=== PATIENT | female | born 1945 | race Caucasian/White ===

== ENCOUNTER → 2016-07-19 | Outpatient (CLI) | payer MEDICARE, OTHER ==
--- NOTE | 2016-07-19 14:14 | MM ---
Reason for exam: screening (asymptomatic). History: Patient is postmenopausal and history of other cancer. Physical Findings: A clinical breast exam by your physician is recommended on an annual basis and results should be correlated with mammographic findings. MG 3D Screening Mammo W/Cad Bilateral CC and MLO view(s) were taken. There are scattered fibroglandular densities. Finding: There are typically benign vascular, round, skin calcifications in both breasts. There is a chronic nodularity bilaterally. There is no discrete abnormality. ASSESSMENT: Benign, BI-RAD 2 RECOMMENDATION: Routine screening mammogram of both breasts in 1 year.
== END | disposition home or self-care (01) ==
LOC: RADMAMWWP 11:11
PROVIDERS: ATTEND Family Medicine
DX: Z12.31 Encounter for screening mammogram for malignant neoplasm of breast (principal)
CPT/HCPCS: 77063; G0202

== ENCOUNTER 2017-01-13 12:48 | Inpatient (IN) | payer MEDICARE, OTHER ==
[2017-01-13] MEDS ORDERED: RX INFO: IV CONTRAST WAS GIVEN 1 EACH MISC MISCELLANE PRN (13:51)
[2017-01-13] MEDS ORDERED: SODIUM CHLORIDE 0.9% 500 ML IV STA (13:51)
--- NOTE | 2017-01-13 13:58 | ED ---
Abdominal Pain HPI - General Chief Complaint: Abdominal Pain Stated Complaint: Constipation, Abd Pain Time Seen by Provider: 01/13/17 13:44 Source: patient, RN notes reviewed Mode of arrival: ambulatory Limitations: no limitations - History of Present Illness Initial Comments: 71-year-old female presents emergency Department from primary care physician's office for abdominal pain. Patient states she has not felt well and said problems with her bowel movements over the last 1 week. Patient states that she has felt weak and, rundown Patient had repeat x-rays which showed possible ileus her large colon. Patient states that she's been having difficulty with constipation states that she has been on MiraLAX and magnesium citrate with minimal relief. She states she does get small slender bowel movements. Patient states she is scheduled colonoscopy but this is not until 2 weeks from now with Dr. Bustos. Patient denies any fever, chills, nausea, vomiting diarrhea dysuria or hematuria. Primary care physician did call over to emergency department stating that she was sending the patient and that she was given order a CT outpatient were requested this to be ordered in the emergency room. - Related Data Home Medications Medication Instructions Recorded Confirmed Allopurinol [Zyloprim] 300 mg PO HS 01/13/17 01/13/17 Alpha Lipoic Acid 50 mg PO DAILY 01/13/17 01/13/17 Aspirin 81 mg PO HS 01/13/17 01/13/17 Diclofenac Sodium [Voltaren] 75 mg PO BID 01/13/17 01/13/17 Hydrochlorothiazide [Hydrodiuril] 25 mg PO DAILY 01/13/17 01/13/17 LORazepam [Ativan] 0.5 - 1 mg PO TID PRN 01/13/17 01/13/17 Levothyroxine Sodium [Synthroid] 100 mcg PO HS 01/13/17 01/13/17 Montelukast [Singulair] 10 mg PO HS 01/13/17 01/13/17 Multivitamins, Thera [Multivitamin 1 tab PO DAILY 01/13/17 01/13/17 (formulary)] OXcarbazepine [Trileptal] 300 mg PO BID 01/13/17 01/13/17 [place]-3 Fatty Acids/Fish Oil [Fish 1 cap PO DAILY 01/13/17 01/13/17 Oil 1,000 mg Softgel] Omeprazole [PriLOSEC] 40 mg PO DAILY 01/13/17 01/13/17 Potassium Chloride ER [K-Dur 20] 20 meq PO HS 01/13/17 01/13/17 Ranitidine HCl [Zantac] 150 mg PO W/SUPPER 01/13/17 01/13/17 Spironolactone [Aldactone] 50 mg PO HS 01/13/17 01/13/17 Ubidecarenone [Co Q-10] 100 mg PO DAILY 01/13/17 01/13/17 guaiFENesin [Mucinex] 600 mg PO BID 01/13/17 01/13/17 lamoTRIgine [LaMICtal] 400 mg PO DAILY 01/13/17 01/13/17 metFORMIN HCL ER [Glucophage Xr] 500 mg PO PC-SUPPER 01/13/17 01/13/17 Allergies Allergy/AdvReac Type Severity Reaction Status Date / Time chlordiazepoxide Allergy Unknown Verified 01/13/17 14:40 [From Librax (with clidinium)] clidinium Allergy Unknown Verified 01/13/17 14:40 [From Librax (with clidinium)] codeine Allergy Itching Verified 01/13/17 14:40 Penicillins Allergy Rash/Hives Verified 01/13/17 14:40 pentazocine lactate Allergy Hallucinati Verified 01/13/17 14:40 [From Talwin] ons propoxyphene HCl Allergy Rapid Verified 01/13/17 14:40 [From Darvon] Heart Rate tomato AdvReac Nausea & Verified 01/13/17 14:40 Vomiting & Diarrhea Review of Systems ROS Statement: Those systems with pertinent positive or pertinent negative responses have been documented in the HPI. ROS Other: All systems not noted in ROS Statement are negative. Past Medical History Past Medical History: Diabetes Mellitus, Thyroid Disorder Additional Past Medical History / Comment(s): bipolar hypokalemia murmur History of Any Multi-Drug Resistant Organisms: None Reported Past Surgical History: Appendectomy, Orthopedic Surgery, Tonsillectomy, Tubal Ligation Additional Past Surgical History / Comment(s): knee Past Psychological History: Bipolar Smoking Status: Never smoker Past Alcohol Use History: None Reported Past Drug Use History: None Reported General Exam Limitations: no limitations General appearance: alert, in no apparent distress Neck exam: Present: normal inspection, full ROM. Absent: tenderness, meningismus, lymphadenopathy Respiratory exam: Present: normal lung sounds bilaterally. Absent: respiratory distress, wheezes, rales, rhonchi, stridor Cardiovascular Exam: Present: regular rate, normal rhythm, normal heart sounds. Absent: systolic murmur, diastolic murmur, rubs, gallop, clicks GI/Abdominal exam: Present: soft, tenderness (Mild diffuse), normal bowel sounds. Absent: distended, guarding, rebound, rigid Back exam: Absent: CVA tenderness (R), CVA tenderness (L) Skin exam: Present: warm, dry, intact, normal color. Absent: rash Course Vital Signs 01/13/17 13:14 Temperature 97.1 F L Pulse Rate 81 Respiratory 18 Rate Blood Pressure 134/68 O2 Sat by Pulse 100 Oximetry Medical Decision Making - Lab Data Result diagrams: 01/13/17 14:00 01/13/17 14:00 Lab Results 01/13/17 01/13/17 01/13/17 Range/Units 14:00 14:00 14:08 WBC 7.7 (3.8-10.6) k/uL RBC 3.73 L (3.80-5.40) m/uL Hgb 10.0 L (11.4-16.0) gm/dL Hct 30.7 L (34.0-46.0) % MCV 82.2 (80.0-100.0) fL MCH 26.9 (25.0-35.0) pg MCHC 32.7 (31.0-37.0) g/dL RDW 15.7 H (11.5-15.5) % Plt Count 506 H (150-450) k/uL Neutrophils % 70 % Lymphocytes % 18 % Monocytes % 7 % Eosinophils % 2 % Basophils % 1 % Neutrophils # 5.4 (1.3-7.7) k/uL Lymphocytes # 1.3 (1.0-4.8) k/uL Monocytes # 0.5 (0-1.0) k/uL Eosinophils # 0.2 (0-0.7) k/uL Basophils # 0.0 (0-0.2) k/uL Sodium 118 L* (137-145) mmol/L Potassium 5.0 (3.5-5.1) mmol/L Chloride 82 L (98-107) mmol/L Carbon Dioxide 24 (22-30) mmol/L Anion Gap 12 mmol/L BUN 11 (7-17) mg/dL Creatinine 0.61 (0.52-1.04) mg/dL Est GFR (MDRD) Af Amer >60 (>60 ml/min/1.73 sqM) Est GFR (MDRD) Non-Af >60 (>60 ml/min/1.73 sqM) Glucose 98 (74-99) mg/dL POC Glucose (mg/dL) (75-99) mg/dL POC Glu [employer] Operator ID Calcium 9.5 (8.4-10.2) mg/dL Total Bilirubin 0.2 (0.2-1.3) mg/dL AST 39 H (14-36) U/L ALT 68 H (9-52) U/L Alkaline Phosphatase 95 (38-126) U/L Total Protein 7.4 (6.3-8.2) g/dL Albumin 4.8 (3.5-5.0) g/dL Amylase 58 (30-110) U/L Lipase 197 (23-300) U/L Urine Color Yellow Urine Appearance Cloudy H (Clear) Urine pH 7.5 (5.0-8.0) Ur Specific [place] 1.018 (1.001-1.035) Urine Protein 1+ H (Negative) Urine Glucose (UA) Negative (Negative) Urine Ketones Trace H (Negative) Urine Blood Negative (Negative) Urine Nitrite Negative (Negative) Urine Bilirubin Negative (Negative) Urine Urobilinogen <2.0 (<2.0) mg/dL Ur Leukocyte Esterase Negative (Negative) Urine RBC 1 (0-5) /hpf Urine WBC 2 (0-5) /hpf Ur Squamous Epith Cells 11 H (0-4) /hpf Amorphous Sediment Moderate H (None) /hpf Urine Bacteria Rare H (None) /hpf Urine Mucus Occasional H (None) /hpf 01/13/17 Range/Units 15:32 WBC (3.8-10.6) k/uL RBC (3.80-5.40) m/uL Hgb (11.4-16.0) gm/dL Hct (34.0-46.0) % MCV (80.0-100.0) fL MCH (25.0-35.0) pg MCHC (31.0-37.0) g/dL RDW (11.5-15.5) % Plt Count (150-450) k/uL Neutrophils % % Lymphocytes % % Monocytes % % Eosinophils % % Basophils % % Neutrophils # (1.3-7.7) k/uL Lymphocytes # (1.0-4.8) k/uL Monocytes # (0-1.0) k/uL Eosinophils # (0-0.7) k/uL Basophils # (0-0.2) k/uL Sodium (137-145) mmol/L Potassium (3.5-5.1) mmol/L Chloride (98-107) mmol/L Carbon Dioxide (22-30) mmol/L Anion Gap mmol/L BUN (7-17) mg/dL Creatinine (0.52-1.04) mg/dL Est GFR (MDRD) Af Amer (>60 ml/min/1.73 sqM) Est GFR (MDRD) Non-Af (>60 ml/min/1.73 sqM) Glucose (74-99) mg/dL POC Glucose (mg/dL) 118 H (75-99) mg/dL POC Glu [employer]ging [employer] Operator ID [place], Felicia Calcium (8.4-10.2) mg/dL Total Bilirubin (0.2-1.3) mg/dL AST (14-36) U/L ALT (9-52) U/L Alkaline Phosphatase (38-126) U/L Total Protein (6.3-8.2) g/dL Albumin (3.5-5.0) g/dL Amylase (30-110) U/L Lipase (23-300) U/L Urine Color Urine Appearance (Clear) Urine pH (5.0-8.0) Ur Specific [place] (1.001-1.035) Urine Protein (Negative) Urine Glucose (UA) (Negative) Urine Ketones (Negative) Urine Blood (Negative) Urine Nitrite (Negative) Urine Bilirubin (Negative) Urine Urobilinogen (<2.0) mg/dL Ur Leukocyte Esterase (Negative) Urine RBC (0-5) /hpf Urine WBC (0-5) /hpf Ur Squamous Epith Cells (0-4) /hpf Amorphous Sediment (None) /hpf Urine Bacteria (None) /hpf Urine Mucus (None) /hpf Disposition Clinical Impression: Hyponatremia Disposition: ADMITTED IP TO THIS HOSP Condition: Stable Referrals: Nicole Coughlin MD [Primary Care Provider] - 1-2 days
[2017-01-13 14:09] LABS: Basophils % (A) 1 %; CH 27.9; Eosinophils # (A) 0.2 k/uL (0-0.7); Eosinophils % (A) 2 %; HCT 30.7 % (34.0-46.0); HDW 2.71; Luc # (Auto) 0.19; Luc % (Auto) 2; Lymphocytes # (A) 1.3 k/uL (1.0-4.8); Lymphocytes % (A) 18 %; MCH 26.9 pg (25.0-35.0); MCHC 32.7 g/dL (31.0-37.0); MCV 82.2 fL (80.0-100.0); Mean Platelet Volume 6.5; Monocytes # (A) 0.5 k/uL (0-1.0); Monocytes % (A) 7 %; Neutrophils # (A) 5.4 k/uL (1.3-7.7); Neutrophils % (A) 70 %; RBC 3.73 m/uL (3.80-5.40); RDW 15.7 % (11.5-15.5); WBC 7.7 k/uL (3.8-10.6); WBC (Perox) 8.35
[2017-01-13 14:19] LABS: Amorphous Sediment,Urine Moderate /hpf; Appearance,Urine Cloudy (Clear); Bacteria,Urine Rare /hpf; Bilirubin,Urine Negative (Negative); Glucose,Urine (UA) Negative (Negative); Ketones,Urine Trace (Negative); Leukocyte Esterase,Urine Negative (Negative); Mucus,Urine Occasional /hpf; Nitrite,Urine Negative (Negative); PH, Urine 7.5 (5.0-8.0); Particle Count 5949; Protein,Urine 1+ (Negative); RBC,Urine 1 /hpf (0-5); Specific Gravity,Urine 1.018 (1.001-1.035); Squamous Epithelial Cell,Urine 11 /hpf (0-4); UA Billing (MACRO vs. MICRO) MICRO; Urobilinogen,Urine <2.0 mg/dL (<2.0); WBC,Urine 2 /hpf (0-5)
[2017-01-13 14:21] LABS: Blood Urea Nitrogen 11 mg/dL (7-17); Carbon Dioxide 24 mmol/L (22-30)
[2017-01-13 14:42] LABS: ALT 68 U/L (9-52); AST 39 U/L (14-36); Alkaline Phosphatase 95 U/L (38-126); Amylase 58 U/L (30-110); Anion Gap 12 mmol/L; Calcium 9.5 mg/dL (8.4-10.2); Chloride 82 mmol/L (98-107); Non-African American GFR(MDRD) >60 (>60 ml/min/1.73 sqM); Total Bilirubin 0.2 mg/dL (0.2-1.3); Total Protein 7.4 g/dL (6.3-8.2)
[2017-01-13 14:46] LABS: Glucose 98 mg/dL (74-99)
[2017-01-13 14:54] LABS: Sodium 118 mmol/L (137-145)
[2017-01-13] MEDS: SODIUM CHLORIDE 0.9% 1,000 ML IV SCH (15:26)
[2017-01-13 15:34] LABS: Glucose,Whole Blood 118 mg/dL (75-99)
--- NOTE | 2017-01-13 16:39 | CT ---
EXAMINATION TYPE: CT abdomen pelvis w con DATE OF EXAM: 01/13/2017 HISTORY: abdominal pain, constipation CT DLP: 1562.7mGycm Automated Exposure Control for Dose Reduction was Utilized. CONTRAST: CT scan of the abdomen and pelvis is performed with IV Contrast, patient injected with 100 mL of Omni paque 300. COMPARISON: None. FINDINGS: LUNG BASES: Minimal subsegmental bibasilar atelectasis. LIVER/GB: No significant abnormality is appreciated. PANCREAS: No significant abnormality is seen. SPLEEN: No significant abnormality is seen. ADRENALS: No significant abnormality is seen. KIDNEYS: No significant abnormality is seen. BOWEL: No significant abnormality is seen. There is a small gastroesophageal hiatal hernia. There is a moderate amount of retained stool throughout the colon with no evidence of obstruction. UTERUS/[place]: No gross abnormality seen. LYMPH NODES: No greater than 1cm abdominal or pelvic lymph nodes are appreciated. OSSEOUS STRUCTURES: There is grade 1 anterolisthesis of L4 on L5 without pars interarticularis defect , likely degenerative in nature. Moderate degenerative changes are seen of the visualized thoracolumb ar spine. OTHER: No significant additional abnormality is seen. IMPRESSION: 1. No acute intra-abdominal process. 2. Moderate amount of retained stool throughout the nondilated colon. Given the history of constipati on if there is clinical concern for colonic mass colonoscopy would be recommended. 3. Grade 1 anterolisthesis of L4 on L5, likely on a degenerative basis.
[2017-01-13] MEDS ORDERED: NALOXONE 0.4 MG/ML 1 ML VIAL IV PRN (17:00)
[2017-01-13] MEDS ORDERED: LACTULOSE 20 GM/30 ML CUP PO ONE (21:33)
[2017-01-13] MEDS ORDERED: POTASSIUM CHLORIDE ER 20 MEQ TAB.ER PO SCH (23:45)
[2017-01-14] MEDS: SPIRONOLACTONE 25 MG TAB PO SCH ×2 (00:42→22:37)
[2017-01-14] MEDS: LORazepam 1 MG TAB PO PRN ×3 (00:43→22:46)
[2017-01-14] MEDS: SODIUM CHLORIDE 0.9% 1,000 ML IV SCH ×2 (06:59→17:46)
[2017-01-14 08:02] LABS: Glucose,Whole Blood 120 mg/dL (75-99)
[2017-01-14] MEDS: INSULIN LISPRO (humaLOG) 300 UNIT/3 ML VIAL SQ SCH ×4 (08:10→22:36)
[2017-01-14 08:19] LABS: Basophils % (A) 0 %; CH 27.8; CHCM 33.1; Eosinophils # (A) 0.1 k/uL (0-0.7); Eosinophils % (A) 2 %; HCT 30.3 % (34.0-46.0); HDW 2.66; HGB 9.7 gm/dL (11.4-16.0); Luc # (Auto) 0.17; Luc % (Auto) 2; Lymphocytes # (A) 1.3 k/uL (1.0-4.8); Lymphocytes % (A) 16 %; MCH 26.9 pg (25.0-35.0); MCHC 31.9 g/dL (31.0-37.0); MCV 84.3 fL (80.0-100.0); Mean Platelet Volume 6.2; Monocytes # (A) 0.7 k/uL (0-1.0); Monocytes % (A) 8 %; Neutrophils # (A) 5.7 k/uL (1.3-7.7); Neutrophils % (A) 71 %; RBC 3.59 m/uL (3.80-5.40); RDW 15.9 % (11.5-15.5); WBC 7.9 k/uL (3.8-10.6); WBC (Perox) 7.89
[2017-01-14] MEDS: PANTOPRAZOLE 40 MG TABLET PO SCH (08:37)
[2017-01-14] MEDS ORDERED: HYDROCHLOROTHIAZIDE 25 MG TAB PO SCH (09:00)
[2017-01-14 09:53] LABS: Anion Gap 11 mmol/L; Blood Urea Nitrogen 8 mg/dL (7-17); Calcium 9.5 mg/dL (8.4-10.2); Carbon Dioxide 23 mmol/L (22-30); Chloride 89 mmol/L (98-107); Glucose 109 mg/dL (74-99); Non-African American GFR(MDRD) >60 (>60 ml/min/1.73 sqM); Potassium 4.9 mmol/L (3.5-5.1); Sodium 123 mmol/L (137-145)
[2017-01-14] MEDS: ACETAMINOPHEN TAB 325 MG TAB PO PRN ×2 (11:19→18:51)
[2017-01-14] MEDS: MAGNESIUM SULFATE-D5W PMX 1 GM in DEXTROSE/WATER 1 100ML.BAG IVPB SCH ×2 (11:20→12:26)
[2017-01-14] MEDS: lamoTRIgine 100 MG TAB PO SCH (11:21)
[2017-01-14] MEDS: OXcarbazepine 300 MG TAB PO SCH ×2 (11:21→22:37)
[2017-01-14 11:40] LABS: Glucose,Whole Blood 132 mg/dL (75-99)
--- NOTE | 2017-01-14 13:20 | P.HPIM ---
History of Present Illness H&P Date: 01/14/17 Chief Complaint: Generalized weakness This is a 71-year-old female with past medical history noted below who presented to the hospital with generalized weakness and not feeling well. Patient said that for the past few days she has been feeling very weak and she was having problems with constipation. She denies any nausea or vomiting. She reports decreased appetite as well. No fevers or chills. She presented to the emergency room for further evaluation and was found to be significantly hyponatremic with a sodium level of 118 on presentation. Computed tomography scan of the abdomen and pelvis showed evidence of stool burden and constipation. Patient was admitted to the hospital and was started on IV fluid hydration. Her sodium level improved slightly this morning. She was also given 1 dose of lactulose and she had 2 bowel movements so far. She reports improved appetite this morning. Review of Systems Review of system: 14 points review of systems were obtained and were negative except to what were mentioned in the HPI. Past Medical History Past Medical History: Asthma, Diabetes Mellitus, Hyperlipidemia, Thyroid Disorder Additional Past Medical History / Comment(s): bipolar hypokalemia murmur History of Any Multi-Drug Resistant Organisms: None Reported Past Surgical History: Appendectomy, Orthopedic Surgery, Tonsillectomy, Tubal Ligation Additional Past Surgical History / Comment(s): knee Past Anesthesia/Blood Transfusion Reactions: No Reported Reaction Past Psychological History: Bipolar Smoking Status: Never smoker Past Alcohol Use History: None Reported Past Drug Use History: None Reported - Past Family History Father Family Medical History: Cancer, Hypertension Mother Family Medical History: Pulmonary Embolus Additional Family Medical History / Comment(s): bi polar Medications and Allergies Home Medications Medication Instructions Recorded Confirmed Type Allopurinol [Zyloprim] 300 mg PO HS 01/13/17 01/13/17 History Alpha Lipoic Acid 50 mg PO DAILY 01/13/17 01/13/17 History Aspirin 81 mg PO HS 01/13/17 01/13/17 History Diclofenac Sodium [Voltaren] 75 mg PO BID 01/13/17 01/13/17 History Hydrochlorothiazide [Hydrodiuril] 25 mg PO DAILY 01/13/17 01/13/17 History LORazepam [Ativan] 0.5 - 1 mg PO TID PRN 01/13/17 01/13/17 History Levothyroxine Sodium [Synthroid] 100 mcg PO HS 01/13/17 01/13/17 History Montelukast [Singulair] 10 mg PO HS 01/13/17 01/13/17 History Multivitamins, Thera [Multivitamin 1 tab PO DAILY 01/13/17 01/13/17 History (formulary)] OXcarbazepine [Trileptal] 300 mg PO BID 01/13/17 01/13/17 History [place]-3 Fatty Acids/Fish Oil [Fish 1 cap PO DAILY 01/13/17 01/13/17 History Oil 1,000 mg Softgel] Omeprazole [PriLOSEC] 40 mg PO DAILY 01/13/17 01/13/17 History Potassium Chloride ER [K-Dur 20] 20 meq PO HS 01/13/17 01/13/17 History Ranitidine HCl [Zantac] 150 mg PO W/SUPPER 01/13/17 01/13/17 History Spironolactone [Aldactone] 50 mg PO HS 01/13/17 01/13/17 History Ubidecarenone [Co Q-10] 100 mg PO DAILY 01/13/17 01/13/17 History guaiFENesin [Mucinex] 600 mg PO BID 01/13/17 01/13/17 History lamoTRIgine [LaMICtal] 400 mg PO DAILY 01/13/17 01/13/17 History metFORMIN HCL ER [Glucophage Xr] 500 mg PO PC-SUPPER 01/13/17 01/13/17 History Allergies Allergy/AdvReac Type Severity Reaction Status Date / Time chlordiazepoxide Allergy Unknown Verified 01/13/17 14:40 [From Librax (with clidinium)] clidinium Allergy Unknown Verified 01/13/17 14:40 [From Librax (with clidinium)] codeine Allergy Itching Verified 01/13/17 14:40 Penicillins Allergy Rash/Hives Verified 01/13/17 14:40 pentazocine lactate Allergy Hallucinati Verified 01/13/17 14:40 [From Talwin] ons propoxyphene HCl Allergy Rapid Verified 01/13/17 14:40 [From Darvon] Heart Rate tomato AdvReac Nausea & Verified 01/13/17 14:40 Vomiting & Diarrhea Physical Exam Vitals: Vital Signs Temp Pulse Pulse Resp BP BP Pulse Ox 01/14/17 12:00 97.7 F 81 16 140/65 100 01/14/17 08:00 89 18 01/14/17 07:54 97.0 F L 89 18 137/65 97 01/14/17 04:00 97.5 F L 85 18 165/70 97 01/14/17 00:00 97.1 F L 89 16 140/62 99 01/13/17 20:20 97.3 F L 93 16 169/77 98 01/13/17 19:28 97.3 F L 84 16 169/77 98 01/13/17 18:57 97.8 F 70 16 142/62 98 01/13/17 15:30 97.9 F 66 15 139/70 99 Intake and Output 01/13/17 01/14/17 01/14/17 22:59 06:59 14:59 Intake Total 825 Balance 825 Intake: Intake, IV Titration 825 Amount Sodium Chloride 0.9% 1, 825 000 ml @ 75 mls/hr IV . [id number] [facility] Rx#:[id number] Other: Voiding Method Toilet Toilet Toilet # Voids 1 1 # Bowel Movements 5 Weight 93.4 kg General: The patient is awake and alert, in no distress Eye: there is normal conjunctiva bilaterally. Neck: The neck is supple, there is no JVD. Cardiovascular: Normal S1-S2, no S3-S4, no murmurs. Respiratory: Lungs clear to auscultation bilaterally Gastrointestinal: Abdomen is soft, nontender Musculoskeletal: There is no pedal edema. Neurological:. Speech is normal. Skin: Skin is warm and dry Results CBC & Chem 7: 01/14/17 07:46 01/14/17 07:46 Labs: Abnormal Lab Results - Last 24 Hours (Table) 01/13/17 01/13/17 01/13/17 Range/Units 14:00 14:00 14:08 RBC 3.73 L (3.80-5.40) m/uL Hgb 10.0 L (11.4-16.0) gm/dL Hct 30.7 L (34.0-46.0) % RDW 15.7 H (11.5-15.5) % Plt Count 506 H (150-450) k/uL Sodium 118 L* (137-145) mmol/L Chloride 82 L (98-107) mmol/L Glucose (74-99) mg/dL POC Glucose (mg/dL) (75-99) mg/dL Magnesium (1.6-2.3) mg/dL AST 39 H (14-36) U/L ALT 68 H (9-52) U/L Urine Appearance Cloudy H (Clear) Urine Protein 1+ H (Negative) Urine Ketones Trace H (Negative) Ur Squamous Epith Cells 11 H (0-4) /hpf Amorphous Sediment Moderate H (None) /hpf Urine Bacteria Rare H (None) /hpf Urine Mucus Occasional H (None) /hpf 01/13/17 01/14/17 01/14/17 Range/Units 15:32 07:38 07:46 RBC 3.59 L (3.80-5.40) m/uL Hgb 9.7 L (11.4-16.0) gm/dL Hct 30.3 L (34.0-46.0) % RDW 15.9 H (11.5-15.5) % Plt Count 538 H (150-450) k/uL Sodium (137-145) mmol/L Chloride (98-107) mmol/L Glucose (74-99) mg/dL POC Glucose (mg/dL) 118 H 120 H (75-99) mg/dL Magnesium (1.6-2.3) mg/dL AST (14-36) U/L ALT (9-52) U/L Urine Appearance (Clear) Urine Protein (Negative) Urine Ketones (Negative) Ur Squamous Epith Cells (0-4) /hpf Amorphous Sediment (None) /hpf Urine Bacteria (None) /hpf Urine Mucus (None) /hpf 01/14/17 01/14/17 01/14/17 Range/Units 07:46 07:46 11:35 RBC (3.80-5.40) m/uL Hgb (11.4-16.0) gm/dL Hct (34.0-46.0) % RDW (11.5-15.5) % Plt Count (150-450) k/uL Sodium 123 L (137-145) mmol/L Chloride 89 L (98-107) mmol/L Glucose 109 H (74-99) mg/dL POC Glucose (mg/dL) 132 H (75-99) mg/dL Magnesium 1.5 L (1.6-2.3) mg/dL AST (14-36) U/L ALT (9-52) U/L Urine Appearance (Clear) Urine Protein (Negative) Urine Ketones (Negative) Ur Squamous Epith Cells (0-4) /hpf Amorphous Sediment (None) /hpf Urine Bacteria (None) /hpf Urine Mucus (None) /hpf Thrombosis Risk Factor Assmnt - Choose All That Apply Any of the Below Risk Factors Present?: No Other Risk Factors: Yes Each Risk Factor Represents 2 Points: Age 61-74 years Thrombosis Risk Factor Assessment Total Risk Factor Score: 2 Thrombosis Risk Factor Assessment Level: Low Risk Assessment and Plan Plan: 1. Hypovolemic hyponatremia: Multifactorial. Now improving with IV fluid hydration. May be attributed to Trileptal use, hydrochlorothiazide, and poor by mouth intake for the past few days. I would discontinue her hydrochlorothiazide. Continue gentle IV fluid hydration. Avoid over correcting her hyponatremia. Advised to discuss with her psychiatrist may change if she remained hyponatremic. 2. Constipation, patient had 2 bowel movements since admission. We will give her 1 more dose of lactulose. If this problem becomes chronic she will need to discuss with her psychiatrist is changing her medications around as an extended is known to cause constipation. 3. Type 2 diabetes mellitus hold metformin and continue sliding scale insulin 4. Hypothyroidism 5. DVT prophylaxis with subcu heparin Today, I reviewed her medication list lab work results. Continue current regimen. Recheck lab work in the morning. Give 1 more dose of lactulose today. Anticipate discharge home tomorrow if it continues to improve.
[2017-01-14] MEDS ORDERED: LACTULOSE 20 GM/30 ML CUP PO ONE (13:30)
[2017-01-14 17:08] LABS: Glucose,Whole Blood 144 mg/dL (75-99)
[2017-01-14] MEDS ORDERED: FAMOTIDINE 20 MG TAB PO SCH (17:30)
[2017-01-14] MEDS ORDERED: LEVOTHYROXINE 100 MCG TAB PO SCH (21:00)
[2017-01-14] MEDS ORDERED: MONTELUKAST 10 MG TAB PO SCH (21:00)
[2017-01-14] MEDS ORDERED: ALLOPURINOL 300 MG TAB PO SCH (21:00)
[2017-01-14] MEDS ORDERED: ASPIRIN 81 MG CHEW PO SCH (21:00)
[2017-01-14 21:06] LABS: Glucose,Whole Blood 116 mg/dL (75-99)
[2017-01-14] MEDS: guaiFENesin 600 MG TABLET.ER PO SCH (22:36)
[2017-01-14] MEDS: HEPARIN SODIUM,PORCINE 5,000 UNIT/ML 1 ML VIAL SQ SCH (22:36)
[2017-01-14] MEDS ORDERED: OXcarbazepine 300 MG TAB PO SCH (23:55)
[2017-01-15 06:24] LABS: Glucose,Whole Blood 104 mg/dL (75-99)
[2017-01-15 06:50] LABS: Anion Gap 9 mmol/L; Blood Urea Nitrogen 9 mg/dL (7-17); Calcium 9.1 mg/dL (8.4-10.2); Carbon Dioxide 23 mmol/L (22-30); Chloride 93 mmol/L (98-107); Glucose 87 mg/dL (74-99); Magnesium 1.4 mg/dL (1.6-2.3); Non-African American GFR(MDRD) >60 (>60 ml/min/1.73 sqM); Potassium 4.4 mmol/L (3.5-5.1); Sodium 125 mmol/L (137-145)
[2017-01-15 08:22] VITALS: RESP 17
[2017-01-15] MEDS: SODIUM CHLORIDE 0.9% 1,000 ML IV SCH (08:44)
[2017-01-15] MEDS: INSULIN LISPRO (humaLOG) 300 UNIT/3 ML VIAL SQ SCH ×2 (08:44→12:12)
[2017-01-15] MEDS: guaiFENesin 600 MG TABLET.ER PO SCH (08:46)
[2017-01-15] MEDS: OXcarbazepine 300 MG TAB PO SCH (08:46)
[2017-01-15] MEDS: lamoTRIgine 100 MG TAB PO SCH (08:46)
[2017-01-15] MEDS: PANTOPRAZOLE 40 MG TABLET PO SCH (08:46)
[2017-01-15] MEDS: HEPARIN SODIUM,PORCINE 5,000 UNIT/ML 1 ML VIAL SQ SCH (08:46)
--- NOTE | 2017-01-15 10:53 | P.DS ---
Providers Date of admission: 01/13/17 18:17 Expected date of discharge: 01/15/17 Attending physician: Consuelo Cabrera Primary care physician: Nicole Coughlin [facility] Course: This is 71-year-old female who presented to the hospital originally worsening constipation and abdominal discomfort and was evaluated in the emergency room with a computed tomography scan of the abdomen with evidence of high fecal burden in the colon. Patient was also noted to be significantly hyponatremic with a sodium level on presentation of 118. Below is a list of her medical problems addressed during this hospitalization. 1. Hypovolemic hyponatremia: Multifactorial. improved with IV fluid hydration. May be attributed to Trileptal use, hydrochlorothiazide, and poor by mouth intake for the past few days. I would discontinue her hydrochlorothiazide. Plan to follow-up with PCP within the next couple of days for repeat sodium level. Sodium level on discharge was 125. Advised to discuss with her psychiatrist may change if she remained hyponatremic. 2. Constipation, patient had 2 bowel movements since admission after receiving 1 dose of lactulose. I would start her on MiraLAX daily. If this problem becomes chronic she will need to discuss with her psychiatrist is changing her medications around as an extended is known to cause constipation. 3. Type 2 diabetes mellitus resume home medications 4. Hypothyroidism Patient Condition at Discharge: Stable Plan - Discharge Summary New Discharge Prescriptions: Continue Allopurinol [Zyloprim] 300 mg PO HS lamoTRIgine [LaMICtal] 400 mg PO DAILY guaiFENesin [Mucinex] 600 mg PO BID Aspirin 81 mg PO HS Spironolactone [Aldactone] 50 mg PO HS Ranitidine HCl [Zantac] 150 mg PO W/SUPPER OXcarbazepine [Trileptal] 300 mg PO BID metFORMIN HCL ER [Glucophage Xr] 500 mg PO PC-SUPPER Omeprazole [PriLOSEC] 40 mg PO DAILY Montelukast [Singulair] 10 mg PO HS Ubidecarenone [Co Q-10] 100 mg PO DAILY [place]-3 Fatty Acids/Fish Oil [Fish Oil 1,000 mg Softgel] 1 cap PO DAILY Multivitamins, Thera [Multivitamin (formulary)] 1 tab PO DAILY Alpha Lipoic Acid 50 mg PO DAILY Levothyroxine Sodium [Synthroid] 100 mcg PO HS LORazepam [Ativan] 0.5 - 1 mg PO TID PRN PRN Reason: Anxiety Diclofenac Sodium [Voltaren] 75 mg PO BID Discontinued Potassium Chloride ER [K-Dur 20] 20 meq PO HS Hydrochlorothiazide [Hydrodiuril] 25 mg PO DAILY Discharge Medication List Allopurinol [Zyloprim] 300 mg PO HS 01/13/17 [History] Alpha Lipoic Acid 50 mg PO DAILY 01/13/17 [History] Aspirin 81 mg PO HS 01/13/17 [History] Diclofenac Sodium [Voltaren] 75 mg PO BID 01/13/17 [History] LORazepam [Ativan] 0.5 - 1 mg PO TID PRN 01/13/17 [History] Levothyroxine Sodium [Synthroid] 100 mcg PO HS 01/13/17 [History] Montelukast [Singulair] 10 mg PO HS 01/13/17 [History] Multivitamins, Thera [Multivitamin (formulary)] 1 tab PO DAILY 01/13/17 [History ] OXcarbazepine [Trileptal] 300 mg PO BID 01/13/17 [History] [place]-3 Fatty Acids/Fish Oil [Fish Oil 1,000 mg Softgel] 1 cap PO DAILY [History] Omeprazole [PriLOSEC] 40 mg PO DAILY 01/13/17 [History] Ranitidine HCl [Zantac] 150 mg PO W/SUPPER 01/13/17 [History] Spironolactone [Aldactone] 50 mg PO HS 01/13/17 [History] Ubidecarenone [Co Q-10] 100 mg PO DAILY 01/13/17 [History] guaiFENesin [Mucinex] 600 mg PO BID 01/13/17 [History] lamoTRIgine [LaMICtal] 400 mg PO DAILY 01/13/17 [History] metFORMIN HCL ER [Glucophage Xr] 500 mg PO PC-SUPPER 01/13/17 [History] Follow up Appointment(s)/Referral(s): Nicole Coughlin MD [Primary Care Provider] - 1-2 days Discharge Disposition: HOME SELF-CARE
[2017-01-15 11:26] VITALS: BP 152/62; PULSE 90; TEMP 97.9
[2017-01-15 12:07] LABS: Glucose,Whole Blood 144 mg/dL (75-99)
== END 2017-01-15 13:44 | disposition home or self-care (01) | DRG 392 ==
LOC: EC 12:48 → 6SEL 18:17
PROVIDERS: ADMIT Internal Medicine; ATTEND Internal Medicine
DX: K59.00 Constipation, unspecified (principal); E87.1 Hypo-osmolality and hyponatremia; E03.9 Hypothyroidism, unspecified; E11.9 Type 2 diabetes mellitus without complications; E78.5 Hyperlipidemia, unspecified; J45.909 Unspecified asthma, uncomplicated; R01.1 Cardiac murmur, unspecified; F31.9 Bipolar disorder, unspecified; Z79.82 Long term (current) use of aspirin; Z79.84 Long term (current) use of oral hypoglycemic drugs; Z79.899 Other long term (current) drug therapy; Z88.5 Allergy status to narcotic agent; Z88.0 Allergy status to penicillin; Z88.8 Allergy status to other drugs, medicaments and biological substances; Z82.49 Family history of ischemic heart disease and other diseases of the circulatory system
CPT/HCPCS: 36415; 74177; 80048; 80053; 81001; 82150; 83036; 83690; 83735; 85025; 96360; 96361; 99285

== ENCOUNTER 2017-01-26 16:03 | Observation (INO) | payer MEDICARE, OTHER ==
[2017-01-26] MEDS ORDERED: SODIUM CHLORIDE 0.9% 1,000 ML IV STA (16:14)
[2017-01-26 16:34] LABS: Glucose,Whole Blood 99 mg/dL (75-99)
--- NOTE | 2017-01-26 16:44 | ED ---
General Adult HPI - General Chief complaint: Neuro Symptoms/Deficit Stated complaint: Poss Stroke Time Seen by Provider: 01/26/17 16:10 Source: patient, RN notes reviewed, old records reviewed Mode of arrival: wheelchair Limitations: no limitations - History of Present Illness Initial comments: This is a 71-year-old female ER for evaluation. This patient presents for evaluation regarding shaking, loss of words. Patient denies headache. Does have recent psychiatric medication change to lithium. No other no neurological deficit the patient noted. - Related Data Home Medications Medication Instructions Recorded Confirmed Allopurinol [Zyloprim] 300 mg PO HS 01/13/17 01/26/17 Alpha Lipoic Acid 50 mg PO DAILY 01/13/17 01/26/17 Aspirin 81 mg PO HS 01/13/17 01/26/17 Diclofenac Sodium [Voltaren] 75 mg PO BID 01/13/17 01/26/17 LORazepam [Ativan] 0.5 - 1 mg PO TID PRN 01/13/17 01/26/17 Levothyroxine Sodium [Synthroid] 100 mcg PO HS 01/13/17 01/26/17 Montelukast [Singulair] 10 mg PO HS 01/13/17 01/26/17 Multivitamins, Thera [Multivitamin 1 tab PO DAILY 01/13/17 01/26/17 (formulary)] OXcarbazepine [Trileptal] 300 mg PO BID 01/13/17 01/26/17 [place]-3 Fatty Acids/Fish Oil [Fish 1 cap PO DAILY 01/13/17 01/26/17 Oil 1,000 mg Softgel] Omeprazole [PriLOSEC] 40 mg PO DAILY 01/13/17 01/26/17 Ranitidine HCl [Zantac] 150 mg PO W/SUPPER 01/13/17 01/26/17 Ubidecarenone [Co Q-10] 100 mg PO DAILY 01/13/17 01/26/17 guaiFENesin [Mucinex] 600 mg PO BID 01/13/17 01/26/17 lamoTRIgine [LaMICtal] 400 mg PO DAILY 01/13/17 01/26/17 metFORMIN HCL ER [Glucophage Xr] 500 mg PO PC-SUPPER 01/13/17 01/26/17 Fluticasone/Salmeterol [Advair 1 puff INHALATION RT-BID 01/26/17 01/26/17 250-50 Diskus] [place] Carbonate 150 mg PO DAILY 01/26/17 01/26/17 Spironolactone 100 mg PO DAILY 01/26/17 01/26/17 Previous Rx's Medication Instructions Recorded Polyethylene Glycol 3350 [Miralax] 17 gm PO DAILY #255 gm 01/15/17 Allergies Allergy/AdvReac Type Severity Reaction Status Date / Time chlordiazepoxide Allergy Unknown Verified 01/26/17 16:34 [From Librax (with clidinium)] clidinium Allergy Unknown Verified 01/26/17 16:34 [From Librax (with clidinium)] codeine Allergy Itching Verified 01/26/17 16:34 Penicillins Allergy Rash/Hives Verified 01/26/17 16:34 pentazocine lactate Allergy Hallucinati Verified 01/26/17 16:34 [From Talwin] ons propoxyphene HCl Allergy Rapid Verified 01/26/17 16:34 [From Darvon] Heart Rate tomato AdvReac Nausea & Verified 01/26/17 16:34 Vomiting & Diarrhea Review of Systems ROS Statement: Those systems with pertinent positive or pertinent negative responses have been documented in the HPI. ROS Other: All systems not noted in ROS Statement are negative. Past Medical History Past Medical History: Asthma, Diabetes Mellitus, Hyperlipidemia, Thyroid Disorder Additional Past Medical History / Comment(s): bipolar hypokalemia murmur History of Any Multi-Drug Resistant Organisms: None Reported Past Surgical History: Appendectomy, Orthopedic Surgery, Tonsillectomy, Tubal Ligation Additional Past Surgical History / Comment(s): knee Past Anesthesia/Blood Transfusion Reactions: No Reported Reaction Past Psychological History: Bipolar Smoking Status: Never smoker Past Alcohol Use History: None Reported Past Drug Use History: None Reported - Past Family History Father Family Medical History: Cancer, Hypertension Mother Family Medical History: Pulmonary Embolus Additional Family Medical History / Comment(s): bi polar General Exam - General Exam Comments Initial Comments: NIH of 0 Limitations: no limitations General appearance: alert, in no apparent distress Head exam: Present: atraumatic, normocephalic, normal inspection Eye exam: Present: normal appearance, PERRL, EOMI. Absent: scleral icterus, conjunctival injection, periorbital swelling ENT exam: Present: normal exam, mucous membranes moist Neck exam: Present: normal inspection. Absent: tenderness, meningismus, lymphadenopathy Respiratory exam: Present: normal lung sounds bilaterally. Absent: respiratory distress, wheezes, rales, rhonchi, stridor Cardiovascular Exam: Present: regular rate, normal rhythm, normal heart sounds. Absent: systolic murmur, diastolic murmur, rubs, gallop, clicks GI/Abdominal exam: Present: soft, normal bowel sounds. Absent: distended, tenderness, guarding, rebound, rigid Extremities exam: Present: normal inspection, full ROM, normal capillary refill. Absent: tenderness, pedal edema, joint swelling, calf tenderness Back exam: Present: normal inspection Neurological exam: Present: alert, oriented X3, CN II-XII intact Psychiatric exam: Present: normal affect, normal mood Skin exam: Present: warm, dry, intact, normal color. Absent: rash Course Vital Signs 01/26/17 01/26/17 01/26/17 16:05 17:42 19:04 Temperature 98.8 F 97.8 F Pulse Rate 109 H 107 H 63 Respiratory 20 18 15 Rate Blood Pressure 177/81 172/77 161/78 O2 Sat by Pulse 100 97 96 Oximetry - Reevaluation(s) Reevaluation #1: 01/26/17 19:12 Patient still NIH's 0, no neurological deficit EKG Findings - EKG Comments: EKG Findings:: EKG shows sinus tachycardia rate 108, [place] 166, QRS 92, QTc 501 Medical Decision Making - Medical Decision Making 71 female here for evaluation. Patient posteriorly for evaluation of neurological changes, patient's psychiatric history, will admit for neurologist evaluation - Lab Data Result diagrams: 01/26/17 16:49 01/26/17 16:49 Lab Results 01/26/17 01/26/17 01/26/17 Range/Units 16:32 16:49 16:49 WBC 8.3 (3.8-10.6) k/uL RBC 3.76 L (3.80-5.40) m/uL Hgb 10.2 L (11.4-16.0) gm/dL Hct 31.4 L (34.0-46.0) % MCV 83.5 (80.0-100.0) fL MCH 27.2 (25.0-35.0) pg MCHC 32.6 (31.0-37.0) g/dL RDW 15.3 (11.5-15.5) % Plt Count 496 H (150-450) k/uL Neutrophils % 68 % Lymphocytes % 18 % Monocytes % 7 % Eosinophils % 4 % Basophils % 0 % Neutrophils # 5.7 (1.3-7.7) k/uL Lymphocytes # 1.5 (1.0-4.8) k/uL Monocytes # 0.6 (0-1.0) k/uL Eosinophils # 0.3 (0-0.7) k/uL Basophils # 0.0 (0-0.2) k/uL Hypochromasia Slight PT (9.0-12.0) sec INR (<1.2) APTT (22.0-30.0) sec Sodium (137-145) mmol/L Potassium (3.5-5.1) mmol/L Chloride (98-107) mmol/L Carbon Dioxide (22-30) mmol/L Anion Gap mmol/L BUN (7-17) mg/dL Creatinine (0.52-1.04) mg/dL Est GFR (MDRD) Af Amer (>60 ml/min/1.73 sqM) Est GFR (MDRD) Non-Af (>60 ml/min/1.73 sqM) Glucose (74-99) mg/dL POC Glucose (mg/dL) 99 (75-99) mg/dL POC Glu Honeycomb Decapper ID [facility], Deanna Calcium (8.4-10.2) mg/dL Phosphorus (2.5-4.5) mg/dL Magnesium (1.6-2.3) mg/dL Total Bilirubin (0.2-1.3) mg/dL AST (14-36) U/L ALT (9-52) U/L Alkaline Phosphatase (38-126) U/L Total Creatine Kinase 65 (30-135) U/L CK-MB (CK-2) 1.2 (0.0-2.4) ng/mL CK-MB (CK-2) Rel Index 1.8 Troponin I <0.012 (0.000-0.034) ng/mL Total Protein (6.3-8.2) g/dL Albumin (3.5-5.0) g/dL Urine Color Urine Appearance (Clear) Urine pH (5.0-8.0) Ur Specific [place] (1.001-1.035) Urine Protein (Negative) Urine Glucose (UA) (Negative) Urine Ketones (Negative) Urine Blood (Negative) Urine Nitrite (Negative) Urine Bilirubin (Negative) Urine Urobilinogen (<2.0) mg/dL Ur Leukocyte Esterase (Negative) [place] mmol/L 01/26/17 01/26/17 01/26/17 Range/Units 16:49 16:49 16:49 WBC (3.8-10.6) k/uL RBC (3.80-5.40) m/uL Hgb (11.4-16.0) gm/dL Hct (34.0-46.0) % MCV (80.0-100.0) fL MCH (25.0-35.0) pg MCHC (31.0-37.0) g/dL RDW (11.5-15.5) % Plt Count (150-450) k/uL Neutrophils % % Lymphocytes % % Monocytes % % Eosinophils % % Basophils % % Neutrophils # (1.3-7.7) k/uL Lymphocytes # (1.0-4.8) k/uL Monocytes # (0-1.0) k/uL Eosinophils # (0-0.7) k/uL Basophils # (0-0.2) k/uL Hypochromasia PT 10.8 (9.0-12.0) sec INR 1.1 (<1.2) APTT 22.2 (22.0-30.0) sec Sodium 139 (137-145) mmol/L Potassium 4.5 (3.5-5.1) mmol/L Chloride 104 (98-107) mmol/L Carbon Dioxide 24 (22-30) mmol/L Anion Gap 11 mmol/L BUN 12 (7-17) mg/dL Creatinine 0.76 (0.52-1.04) mg/dL Est GFR (MDRD) Af Amer >60 (>60 ml/min/1.73 sqM) Est GFR (MDRD) Non-Af >60 (>60 ml/min/1.73 sqM) Glucose 89 (74-99) mg/dL POC Glucose (mg/dL) (75-99) mg/dL POC Glu Honeycomb Decapper ID Calcium 10.1 (8.4-10.2) mg/dL Phosphorus 4.2 (2.5-4.5) mg/dL Magnesium 1.5 L (1.6-2.3) mg/dL Total Bilirubin 0.2 (0.2-1.3) mg/dL AST 23 (14-36) U/L ALT 43 (9-52) U/L Alkaline Phosphatase 93 (38-126) U/L Total Creatine Kinase (30-135) U/L CK-MB (CK-2) (0.0-2.4) ng/mL CK-MB (CK-2) Rel Index Troponin I (0.000-0.034) ng/mL Total Protein 7.4 (6.3-8.2) g/dL Albumin 4.7 (3.5-5.0) g/dL Urine Color Urine Appearance (Clear) Urine pH (5.0-8.0) Ur Specific [place] (1.001-1.035) Urine Protein (Negative) Urine Glucose (UA) (Negative) Urine Ketones (Negative) Urine Blood (Negative) Urine Nitrite (Negative) Urine Bilirubin (Negative) Urine Urobilinogen (<2.0) mg/dL Ur Leukocyte Esterase (Negative) [place] <0.2 mmol/L 01/26/17 Range/Units 17:36 WBC (3.8-10.6) k/uL RBC (3.80-5.40) m/uL Hgb (11.4-16.0) gm/dL Hct (34.0-46.0) % MCV (80.0-100.0) fL MCH (25.0-35.0) pg MCHC (31.0-37.0) g/dL RDW (11.5-15.5) % Plt Count (150-450) k/uL Neutrophils % % Lymphocytes % % Monocytes % % Eosinophils % % Basophils % % Neutrophils # (1.3-7.7) k/uL Lymphocytes # (1.0-4.8) k/uL Monocytes # (0-1.0) k/uL Eosinophils # (0-0.7) k/uL Basophils # (0-0.2) k/uL Hypochromasia PT (9.0-12.0) sec INR (<1.2) APTT (22.0-30.0) sec Sodium (137-145) mmol/L Potassium (3.5-5.1) mmol/L Chloride (98-107) mmol/L Carbon Dioxide (22-30) mmol/L Anion Gap mmol/L BUN (7-17) mg/dL Creatinine (0.52-1.04) mg/dL Est GFR (MDRD) Af Amer (>60 ml/min/1.73 sqM) Est GFR (MDRD) Non-Af (>60 ml/min/1.73 sqM) Glucose (74-99) mg/dL POC Glucose (mg/dL) (75-99) mg/dL POC Glu Honeycomb Decapper ID Calcium (8.4-10.2) mg/dL Phosphorus (2.5-4.5) mg/dL Magnesium (1.6-2.3) mg/dL Total Bilirubin (0.2-1.3) mg/dL AST (14-36) U/L ALT (9-52) U/L Alkaline Phosphatase (38-126) U/L Total Creatine Kinase (30-135) U/L CK-MB (CK-2) (0.0-2.4) ng/mL CK-MB (CK-2) Rel Index Troponin I (0.000-0.034) ng/mL Total Protein (6.3-8.2) g/dL Albumin (3.5-5.0) g/dL Urine Color Light Yellow Urine Appearance Clear (Clear) Urine pH 7.0 (5.0-8.0) Ur Specific [place] 1.005 (1.001-1.035) Urine Protein Negative (Negative) Urine Glucose (UA) Negative (Negative) Urine Ketones Negative (Negative) Urine Blood Negative (Negative) Urine Nitrite Negative (Negative) Urine Bilirubin Negative (Negative) Urine Urobilinogen <2.0 (<2.0) mg/dL Ur Leukocyte Esterase Negative (Negative) [place] mmol/L - Radiology Data Radiology results: report reviewed (CT brain is negative for acute disease), image reviewed Disposition Clinical Impression: Transient cerebral ischemia Disposition: ADMITTED IP TO THIS [facility] Condition: Good Referrals: Nicole Coughlin MD [Primary Care Provider] - 1-2 days
[2017-01-26 16:58] LABS: Basophils % (A) 0 %; CH 26.6; CHCM 31.9; Eosinophils # (A) 0.3 k/uL (0-0.7); Eosinophils % (A) 4 %; HCT 31.4 % (34.0-46.0); HDW 2.85; HGB 10.2 gm/dL (11.4-16.0); Hypochromasia Slight; Luc # (Auto) 0.23; Luc % (Auto) 3; Lymphocytes # (A) 1.5 k/uL (1.0-4.8); Lymphocytes % (A) 18 %; MCH 27.2 pg (25.0-35.0); MCHC 32.6 g/dL (31.0-37.0); MCV 83.5 fL (80.0-100.0); Mean Platelet Volume 6.3; Monocytes # (A) 0.6 k/uL (0-1.0); Monocytes % (A) 7 %; Neutrophils # (A) 5.7 k/uL (1.3-7.7); Neutrophils % (A) 68 %; RBC 3.76 m/uL (3.80-5.40); RDW 15.3 % (11.5-15.5); WBC 8.3 k/uL (3.8-10.6); WBC (Perox) 8.39
[2017-01-26 17:11] LABS: ALT 43 U/L (9-52); AST 23 U/L (14-36); Alkaline Phosphatase 93 U/L (38-126); Anion Gap 11 mmol/L; Blood Urea Nitrogen 12 mg/dL (7-17); Calcium 10.1 mg/dL (8.4-10.2); Carbon Dioxide 24 mmol/L (22-30); Chloride 104 mmol/L (98-107); Glucose 89 mg/dL (74-99); Magnesium 1.5 mg/dL (1.6-2.3); Non-African American GFR(MDRD) >60 (>60 ml/min/1.73 sqM); Phosphorous 4.2 mg/dL (2.5-4.5); Potassium 4.5 mmol/L (3.5-5.1); Sodium 139 mmol/L (137-145); Total Bilirubin 0.2 mg/dL (0.2-1.3); Total Protein 7.4 g/dL (6.3-8.2)
[2017-01-26 17:16] LABS: INR 1.1 (<1.2); Partial Thromboplastin Time 22.2 sec (22.0-30.0); Prothrombin Time 10.8 sec (9.0-12.0)
[2017-01-26 17:23] LABS: Creatine Kinase 65 U/L (30-135)
[2017-01-26 17:36] LABS: Creatine Kinase MB 1.2 ng/mL (0.0-2.4); Troponin I <0.012 ng/mL (0.000-0.034)
--- NOTE | 2017-01-26 17:50 | CT ---
EXAMINATION TYPE: CT brain wo con DATE OF EXAM: 01/26/2017 COMPARISON: NONE TECHNIQUE: Axial CT images were obtained of the brain without the use of contrast. HISTORY: Confusion. CT DLP: 1036.00 mGycm Automated exposure control for dose reduction was used. FINDINGS: There is no acute intracranial hemorrhage, mass effect, or midline shift identified. The ventricles and sulci are within normal limits in size. The globes are intact and the visualized sinuses are jarvis ar. IMPRESSION: NO ACUTE ABNORMALITY IDENTIFIED.
[2017-01-26 17:53] LABS: Appearance,Urine Clear (Clear); Bilirubin,Urine Negative (Negative); Glucose,Urine (UA) Negative (Negative); Ketones,Urine Negative (Negative); Leukocyte Esterase,Urine Negative (Negative); Nitrite,Urine Negative (Negative); Protein,Urine Negative (Negative); Specific Gravity,Urine 1.005 (1.001-1.035); UA Billing (MACRO vs. MICRO) CHEM; Urobilinogen,Urine <2.0 mg/dL (<2.0)
--- NOTE | 2017-01-26 18:26 | XR ---
EXAMINATION TYPE: XR chest 2V DATE OF EXAM: 01/26/2017 COMPARISON: NONE HISTORY: Weakness TECHNIQUE: Frontal and lateral views of the chest are obtained. FINDINGS: There is no focal air space opacity, pleural effusion, or pneumothorax seen. The cardiac silhouette size is within normal limits. The osseous structures are intact. IMPRESSION: No acute cardiopulmonary process.
[2017-01-26] MEDS ORDERED: ASPIRIN 325 MG TAB PO STA (19:02)
[2017-01-26] MEDS: SODIUM CHLORIDE 0.9% 1,000 ML IV SCH (19:32)
[2017-01-26 20:47] VITALS: BMI 39.4
[2017-01-26] MEDS ORDERED: NON-FORMULARY DRUG (Omega-3 Fatty Acids/Fish Oil [Fish Oil 1,000 Mg Softgel] 1 CAP) PO SCH (22:30)
[2017-01-26] MEDS ORDERED: metFORMIN 500 MG TAB PO ONE (22:30)
[2017-01-26] MEDS ORDERED: MAGNESIUM SULFATE-D5W PMX 1 GM in DEXTROSE/WATER 1 100ML.BAG IVPB ONE (23:00)
[2017-01-26] MEDS: SPIRONOLACTONE 25 MG TAB PO SCH (23:04)
[2017-01-26] MEDS: LEVOTHYROXINE 100 MCG TAB PO SCH (23:04)
[2017-01-26] MEDS: LORazepam 1 MG TAB PO PRN (23:04)
[2017-01-26] MEDS: ETODOLAC 300 MG CAPSULE PO SCH (23:05)
[2017-01-26] MEDS: MONTELUKAST 10 MG TAB PO SCH (23:05)
[2017-01-26] MEDS: guaiFENesin 600 MG TABLET.ER PO SCH (23:05)
[2017-01-26] MEDS: ALLOPURINOL 300 MG TAB PO SCH (23:05)
[2017-01-27 06:00] LABS: Glucose,Whole Blood 102 mg/dL (75-99)
[2017-01-27] MEDS: INSULIN LISPRO (humaLOG) 300 UNIT/3 ML VIAL SQ SCH ×4 (06:15→22:09)
[2017-01-27] MEDS: PANTOPRAZOLE 40 MG TABLET PO SCH (06:32)
[2017-01-27] MEDS: SODIUM CHLORIDE 0.9% 1,000 ML IV SCH (06:43)
[2017-01-27 06:54] LABS: Magnesium 1.6 mg/dL (1.6-2.3)
[2017-01-27] MEDS ORDERED: metFORMIN 500 MG TAB PO ONE (07:30)
[2017-01-27] MEDS ORDERED: MAGNESIUM SULFATE-D5W PMX 1 GM in DEXTROSE/WATER 1 100ML.BAG IVPB ONE (08:46)
[2017-01-27] MEDS ORDERED: ALPHA LIPOIC ACID 50 MG PO SCH (09:00)
[2017-01-27] MEDS: LITHIUM CARBONATE 150 MG CAP PO SCH (09:20)
[2017-01-27] MEDS: guaiFENesin 600 MG TABLET.ER PO SCH ×2 (09:20→20:48)
[2017-01-27] MEDS: SPIRONOLACTONE 25 MG TAB PO SCH ×2 (09:20→20:48)
[2017-01-27] MEDS: MULTIVITAMINS, THERA 1 EACH TAB PO SCH (09:20)
[2017-01-27 09:32] LABS: Basophils % (A) 1 %; CH 26.4; CHCM 30.8; Eosinophils # (A) 0.4 k/uL (0-0.7); Eosinophils % (A) 5 %; HCT 30.3 % (34.0-46.0); HDW 2.72; HGB 9.5 gm/dL (11.4-16.0); Hypochromasia Moderate; Luc # (Auto) 0.25; Luc % (Auto) 4; Lymphocytes % (A) 27 %; MCHC 31.5 g/dL (31.0-37.0); MCV 85.9 fL (80.0-100.0); Mean Platelet Volume 6.6; Monocytes # (A) 0.5 k/uL (0-1.0); Monocytes % (A) 7 %; Neutrophils # (A) 4.1 k/uL (1.3-7.7); Neutrophils % (A) 56 %; RBC 3.52 m/uL (3.80-5.40); RDW 15.2 % (11.5-15.5); WBC 7.3 k/uL (3.8-10.6); WBC (Perox) 7.14
[2017-01-27 09:40] LABS: ALT 39 U/L (9-52); AST 22 U/L (14-36); Alkaline Phosphatase 82 U/L (38-126); Anion Gap 13 mmol/L; Blood Urea Nitrogen 13 mg/dL (7-17); Calcium 9.4 mg/dL (8.4-10.2); Carbon Dioxide 23 mmol/L (22-30); Chloride 102 mmol/L (98-107); Glucose 97 mg/dL (74-99); Non-African American GFR(MDRD) >60 (>60 ml/min/1.73 sqM); Potassium 4.2 mmol/L (3.5-5.1); Sodium 138 mmol/L (137-145); Total Bilirubin 0.2 mg/dL (0.2-1.3); Total Protein 6.6 g/dL (6.3-8.2)
[2017-01-27] MEDS ORDERED: ALBUTEROL NEBULIZED 2.5 MG/3 ML INHALATION PRN (10:07)
[2017-01-27] MEDS ORDERED: diphenhydrAMINE 25 MG CAP PO PRN (10:08)
--- NOTE | 2017-01-27 10:30 | P.HPIM ---
History of Present Illness H&P Date: 01/27/17 Chief Complaint: Difficulty with finding her words This is a 71-year-old female, patient of Dr. Coughlin. She has a known past medical history of diabetes mellitus, hyperlipidemia, hypothyroidism, hypertension and bipolar. Patient presents to the emergency room with complaints of difficulty with finding the correct words. And also her train of thought. Patient reports that she was having difficulty focusing on tasks such is things is going to the bathroom. She is reports that she had to tell herself she needs to wipe and then she questioned if she did wipe after using the bathroom. She is another example of that she try to cook her dinner and was having difficulty completing the tasks. She reports that she just Counting to 10 when she needed to measure their occurrence and greeting amounts. Her symptoms resolved a couple hours after being admitted to the hospital. She is currently on the sixth floor and being evaluated for possible TIA. Neurology has been consulted. Computed tomography scan of the brain was negative. A carotid Doppler and echo have been ordered. EKG had initially shown sinus tachycardia with a heart rate of 108. Patient reports being started on lithium about 2 weeks ago her psychiatrist had discontinued the Trileptal because she was having issues with low sodium. And she is now currently on lithium 150 mg daily the lithium level was less than 0.2. Patient also was found have evidence of hypo-magnesium and is receiving supplement. Patient denies any vision changes any facial droop. She denies any weakness on one side of her body. She does admit to having some tremor-like changes in her arms that also had improved. Patient reports no history of seizure activity. Patient denies any fever chills or sweats. Denies any chest pain or shortness of breath. Denies any nausea or vomiting. Denies any bowel movement changes or urinary symptoms. She did state that she felt her symptoms were similar to when she has a low blood sugar however patient reports that she had eaten and didn't check her blood sugar. On admission blood glucose was 99. And this morning blood sugar was 102. Review of Systems Please Refer to HPI otherwise unremarkable Past Medical History Past Medical History: Asthma, Diabetes Mellitus, Hyperlipidemia, Thyroid Disorder Additional Past Medical History / Comment(s): bipolar hypokalemia murmur History of Any Multi-Drug Resistant Organisms: None Reported Past Surgical History: Appendectomy, Orthopedic Surgery, Tonsillectomy, Tubal Ligation Additional Past Surgical History / Comment(s): left knee Past Anesthesia/Blood Transfusion Reactions: No Reported Reaction Past Psychological History: Anxiety, Bipolar Smoking Status: Never smoker Past Alcohol Use History: None Reported Past Drug Use History: None Reported - Past Family History Father Family Medical History: Cancer, Hypertension Additional Family Medical History / Comment(s): pericarditis, thyroid and rectal cancer Mother Family Medical History: Pulmonary Embolus Additional Family Medical History / Comment(s): bi polar Medications and Allergies Home Medications Medication Instructions Recorded Confirmed Type Alpha Lipoic Acid 50 mg PO DAILY 01/13/17 01/26/17 History Aspirin 81 mg PO HS 01/13/17 01/26/17 History Diclofenac Sodium [Voltaren] 75 mg PO BID 01/13/17 01/26/17 History LORazepam [Ativan] 0.5 - 1 mg PO TID PRN 01/13/17 01/26/17 History Levothyroxine Sodium [Synthroid] 100 mcg PO HS 01/13/17 01/26/17 History Montelukast [Singulair] 10 mg PO HS 01/13/17 01/26/17 History Multivitamins, Thera [Multivitamin 1 tab PO DAILY 01/13/17 01/26/17 History (formulary)] [place]-3 Fatty Acids/Fish Oil [Fish 1 cap PO HS 01/13/17 01/26/17 History Oil 1,000 mg Softgel] Omeprazole [PriLOSEC] 40 mg PO DAILY 01/13/17 01/26/17 History Ranitidine HCl [Zantac] 150 mg PO W/SUPPER 01/13/17 01/26/17 History Ubidecarenone [Co Q-10] 100 mg PO DAILY 01/13/17 01/26/17 History guaiFENesin [Mucinex] 600 mg PO BID 01/13/17 01/26/17 History lamoTRIgine [LaMICtal] 400 mg PO DAILY 01/13/17 01/26/17 History metFORMIN HCL ER [Glucophage Xr] 500 mg PO PC-SUPPER 01/13/17 01/26/17 History Allopurinol [Zyloprim] 300 mg PO HS 01/26/17 01/26/17 History Fluticasone/Salmeterol [Advair 1 puff INHALATION RT-BID 01/26/17 01/26/17 History 250-50 Diskus] [place] Carbonate 150 mg PO DAILY 01/26/17 01/26/17 History Spironolactone 50 mg PO BID 01/26/17 01/26/17 History Allergies Allergy/AdvReac Type Severity Reaction Status Date / Time chlordiazepoxide Allergy Unknown Verified 01/26/17 20:26 [From Librax (with clidinium)] clidinium Allergy Unknown Verified 01/26/17 20:26 [From Librax (with clidinium)] codeine Allergy Itching Verified 01/26/17 20:26 Penicillins Allergy Rash/Hives Verified 01/26/17 20:26 pentazocine lactate Allergy Hallucinati Verified 01/26/17 20:26 [From Talwin] ons propoxyphene HCl Allergy Rapid Verified 01/26/17 20:26 [From Darvon] Heart Rate tomato AdvReac Nausea & Verified 01/26/17 20:26 Vomiting & Diarrhea Physical Exam Vitals: Vital Signs Temp Pulse Pulse Resp BP BP Pulse Ox 01/27/17 08:00 96.4 F L 88 136/103 98 01/27/17 04:00 91 16 174/79 97 01/27/17 00:00 98.1 F 99 16 143/73 98 01/26/17 19:04 97.8 F 63 15 161/78 96 01/26/17 17:42 107 H 18 172/77 97 01/26/17 16:05 98.8 F 109 H 20 177/81 100 Intake and Output 01/26/17 01/27/17 01/27/17 22:59 06:59 14:59 Intake Total 900 240 Balance 900 240 Intake: IV 900 Magnesium Sulfate-D5w Pmx 100 1 gm In Dextrose/Water 1 100ml.bag @ 100 mls/hr IVPB ONCE ONE Rx#: [id number] Sodium Chloride 0.9% 1, 800 000 ml @ 100 mls/hr IV . 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 Lower extremity strength equal bilaterally no facial droop or slurred speech Results CBC & Chem 7: 01/27/17 05:28 01/27/17 05:28 Labs: Abnormal Lab Results - Last 24 Hours (Table) 01/26/17 01/26/17 01/27/17 Range/Units 16:49 16:49 05:28 RBC 3.76 L (3.80-5.40) m/uL Hgb 10.2 L (11.4-16.0) gm/dL Hct 31.4 L (34.0-46.0) % Plt Count 496 H (150-450) k/uL POC Glucose (mg/dL) (75-99) mg/dL Magnesium 1.5 L (1.6-2.3) mg/dL LDL Cholesterol, Calc 106 H (0-99) mg/dL HDL Cholesterol 70 H (40-60) mg/dL 01/27/17 01/27/17 Range/Units 05:28 05:59 RBC 3.52 L (3.80-5.40) m/uL Hgb 9.5 L (11.4-16.0) gm/dL Hct 30.3 L (34.0-46.0) % Plt Count (150-450) k/uL POC Glucose (mg/dL) 102 H (75-99) mg/dL Magnesium (1.6-2.3) mg/dL LDL Cholesterol, Calc (0-99) mg/dL HDL Cholesterol (40-60) mg/dL Microbiology - Last 24 Hours (Table) 01/26/17 17:36 Urine Culture - Preliminary Urine,Voided Thrombosis Risk Factor Assmnt - Choose All That Apply Any of the Below Risk Factors Present?: Yes Each Factor Represents 1 point: Obesity (BMI >25) Other Risk Factors: Yes Each Risk Factor Represents 2 Points: Age 61-74 years Each Risk Factor Represents 3 Points: Family history of DVT/PE Other congenital or acquired thrombophilia - If yes, enter type in comment: No Thrombosis Risk Factor Assessment Total Risk Factor Score: 6 Thrombosis Risk Factor Assessment Level: High Risk Assessment and Plan Plan: 1. Possible TIA with difficulty with her speech and thought process. Symptoms now resolved. Neurology consulted. Computed tomography scan of the brain negative. Carotid Doppler and echocardiogram pending. Continue full aspirin. Continue telemetry monitoring. 2. History of bipolar with recent change in medication about 2 weeks ago patient was started on lithium. [place] level less than 0.2. Continue Lamictal 3. Hypomagnesemia: Patient receiving magnesium supplement. Recheck magnesium level in a.m. 4. Essential hypertension: Patient reports not being on blood pressure medications at home. At this time we'll Hep-Lock IV fluids and repeat blood pressure. If remains elevated will start lisinopril 5. Anemia with no evidence of acute blood loss anemia. Hemoglobin has dropped from 10.2-9.5. Likely related to fluids. We'll check iron studies. 6. Diabetes mellitus type 2 on metformin at home. We'll hold metformin during patient's hospitalization and continue sliding scale coverage. Monitor for any episodes of hypoglycemia 7. Hypothyroidism: Check TSH level. Continue with level thyroxine GI prophylaxis Pepcid and DVT prophylaxis subcu heparin Time with Patient: Greater than 30 (Greater than 50% of the total time spent in counseling and coordination of care.I performed an examination of the patient and discussed their management with the physician Planning And Analysis Manager. I have reviewed the Physician Planning And Analysis Manager's notes and agree with the documented findings and plan of care)
[2017-01-27 10:49] LABS: % Iron Saturation 7.1 % (20-50)
[2017-01-27 11:57] LABS: Hemoglobin A1C 6.2 % (4.2-6.1)
[2017-01-27 12:24] LABS: Glucose,Whole Blood 104 mg/dL (75-99)
[2017-01-27] MEDS: HEPARIN SODIUM,PORCINE 5,000 UNIT/ML 1 ML VIAL SQ SCH ×2 (12:27→20:49)
[2017-01-27] MEDS: lamoTRIgine 100 MG TAB PO SCH (12:27)
[2017-01-27] MEDS: ETODOLAC 300 MG CAPSULE PO SCH ×3 (12:27→20:48)
--- NOTE | 2017-01-27 12:54 | ECHOF ---
Referral Reason:TIA MEASUREMENTS -------- HEIGHT: 152.4 cm WEIGHT: 88.9 kg BP: IVSd: 1.6 cm (0.6 - 1.1) LVIDd: 3.4 cm (3.9 - 5.3) LVPWd: 1.4 cm (0.6 - 1.1) IVSs: 2.2 cm LVIDs: 1.9 cm LVPWs: 2.2 cm LAESV Index (A-L): 19.87 ml/m Ao Diam: 3.0 cm (2.0 - 3.7) AV Cusp: 1.5 cm (1.5 - 2.6) LA Diam: 3.1 cm (2.7 - 3.8) MV EXCURSION: 11.453 mm (> 18.000) MV EF SLOPE: 53 mm/s (70 - 150) EPSS: 0.6 cm MV E Manuel: 1.04 m/s MV DecT: 191 ms MV A Manuel: 1.08 m/s MV E/A Ratio: 0.96 AV maxP.63 mmHg AV meanP.35 mmHg RAP: 5.00 mmHg RVSP: 10.72 mmHg FINDINGS -------- Sinus rhythm. This was a technically good study. There is moderate concentric left ventricular hypertrophy. Overall left ventricular systolic function is normal with, an EF between 55 - 60 %. The right ventricle is normal in size and function. The left atrium is normal in size. The right atrium is normal in size. Aortic valve is trileaflet and is mildly thickened. There is mild aortic stenosis present. Peak/mean gradient across the Aortic Valve is 24.63mmHg / 13.35mmHg. There is trace mitral regurgitation. Trace tricuspid regurgitation present. The right ventricular systolic pressure, as measured by Doppler, is 10.72mmHg. Pulmonic valve appears structurally normal. The aortic root size is normal. Normal inferior vena cava with normal inspiratory collapse consistent with estimated right atrial pressure of 5 mmHg. The pericardium is normal. CONCLUSIONS -------- 1. Sinus rhythm. 2. Peak/mean gradient across the Aortic Valve is 24.63mmHg / 13.35mmHg. 3. There is trace mitral regurgitation. 4. Trace tricuspid regurgitation present. 5. The right ventricular systolic pressure, as measured by Doppler, is 10.72mmHg. 6. Pulmonic valve appears structurally normal. 7. The aortic root size is normal. 8. Normal inferior vena cava with normal inspiratory collapse consistent with estimated right atrial pressure of 5 mmHg. 9. The pericardium is normal. 10. This was a technically good study. 11. There is moderate concentric left ventricular hypertrophy. 12. Overall left ventricular systolic function is normal with, an EF between 55 - 60 %. 13. The right ventricle is normal in size and function. 14. The left atrium is normal in size. 15. The right atrium is normal in size. 16. Aortic valve is trileaflet and is mildly thickened. 17. There is mild aortic stenosis present. HULL AND DECK REMOVER: Gypsy Mederos RDCS
--- NOTE | 2017-01-27 14:10 | US ---
EXAMINATION TYPE: US carotid duplex BILAT DATE OF EXAM: 01/27/2017 COMPARISON: NONE CLINICAL HISTORY: TIA. EXAM MEASUREMENTS: RIGHT: Peak Systolic Velocity (PSV) cm/sec ----- Right CCA: 62.8 ----- Right ICA: 88.7 ----- Right ECA: 70.9 ICA/CCA ratio: 1.4 RIGHT: End Diastole cm/sec ----- Right CCA: 16.0 ----- Right ICA: 27.3 ----- Right ECA: 12.8 LEFT: Peak Systolic Velocity (PSV) cm/sec ----- Left CCA: 75.8 ----- Left ICA: 120.0 ----- Left ECA: 123.9 ICA/CCA ratio: 1.6 LEFT: End Diastole cm/sec ----- Left CCA: 14.4 ----- Left ICA: 41.2 ----- Left ECA: 13.6 VERTEBRALS (direction of flow): Right Vertebral: Antegrade Left Vertebral: Antegrade minimal atherosclerotic changes seen. IMPRESSION: No evidence for hemodynamically significant stenosis. Criteria for Assigning % of Stenosis / Diameter reduction (Estimation based on the indirect measurements of the internal carotid artery velocities (ICA PSV). 1. Normal (no stenosis)=ICA PSV < 125 cm/s: ratio < 2.0: ICA EDV<40 cm/s. 2. Less than 50% stenosis=ICA PSV < 125 cm/s: ratio < 2.0: ICA EDV<40 cm/s. 3. 50 to 69% stenosis=ICA PSV of 125 to 230 cm/s: ration 2.0 ? 4.0: ICA EDV 40-100 cm/s. 4. Greater than 70% stenosis to near occlusion= ICA PSV > 230 cm/s: ratio > 4.0: ICA EDV > 100 cm/s. 5. Near occlusion= ICA PSV velocities may be low or undetectable: variable ratio and ICA EDV. 6. Total occlusion=unable to detect flow.
[2017-01-27] MEDS: POLYETHYLENE GLYCOL 3350 17 GM POWD.PACK PO SCH (16:56)
[2017-01-27 17:09] LABS: Glucose,Whole Blood 114 mg/dL (75-99)
[2017-01-27] MEDS ORDERED: metFORMIN 500 MG TAB PO SCH (17:30)
[2017-01-27] MEDS ORDERED: FAMOTIDINE 20 MG TAB PO SCH (17:30)
[2017-01-27] MEDS: ASPIRIN 325 MG TAB PO SCH (18:04)
[2017-01-27] MEDS: amLODIPine 5 MG TAB PO SCH (18:04)
[2017-01-27] MEDS ORDERED: SYMBICORT 80-4.5 MCG INHALER INHALATION SCH (20:00)
--- NOTE | 2017-01-27 20:04 | P.CNNES ---
History of Present Illness Consult date: 01/27/17 History of Present Illness: The patient is a 71-year-old right-handed white female states that yesterday around 1 in the afternoon she experienced some lightheadedness and she felt like everything was in slow motion. There is some tunnel vision and she thought she may have been having a stroke so she took 4 aspirin. Oka sitting on evening even to speak. She denied any word finding difficulty or slurred speech. She denied any focal weakness. He 32 she asked her to take her to the emergency room. On the way they are she did have some right hand tremor. The entire episode lasted for about 3 hours [place] any previous history of such symptoms since changes in her medication include the addition of lithium 2 weeks ago. She was admitted to the hospital with TIA she had a CT of the brain which did not show any acute abnormality. She states she feels back to her baseline now. Her blood pressure was elevated on admission and Norvasc was added. She was admitted to the hospital with possible TIA. Review of Systems Constitutional: Denies chills, Denies fever Eyes: denies blurred vision, denies pain Ears, nose, mouth and throat: Denies headache, Denies sore throat Cardiovascular: Denies chest pain, Denies shortness of breath Respiratory: Denies cough Gastrointestinal: Denies abdominal pain, Denies diarrhea, Denies nausea, Denies vomiting Musculoskeletal: Denies myalgias Neurological: Denies numbness, Denies weakness Psychiatric: Denies anxiety, Denies depression Endocrine: Denies fatigue, Denies weight change Past Medical History Past Medical History: Asthma, Diabetes Mellitus, Hyperlipidemia, Thyroid Disorder Additional Past Medical History / Comment(s): bipolar hypokalemia murmur History of Any Multi-Drug Resistant Organisms: None Reported Past Surgical History: Appendectomy, Orthopedic Surgery, Tonsillectomy, Tubal Ligation Additional Past Surgical History / Comment(s): left knee Past Anesthesia/Blood Transfusion Reactions: No Reported Reaction Past Psychological History: Anxiety, Bipolar Smoking Status: Never smoker Past Alcohol Use History: None Reported Past Drug Use History: None Reported - Past Family History Father Family Medical History: Cancer, Hypertension Additional Family Medical History / Comment(s): pericarditis, thyroid and rectal cancer Mother Family Medical History: Pulmonary Embolus Additional Family Medical History / Comment(s): bi polar Medications and Allergies Home Medications Medication Instructions Recorded Confirmed Type Alpha Lipoic Acid 50 mg PO DAILY 01/13/17 01/26/17 History Aspirin 81 mg PO HS 01/13/17 01/26/17 History Diclofenac Sodium [Voltaren] 75 mg PO BID 01/13/17 01/26/17 History LORazepam [Ativan] 0.5 - 1 mg PO TID PRN 01/13/17 01/26/17 History Levothyroxine Sodium [Synthroid] 100 mcg PO HS 01/13/17 01/26/17 History Montelukast [Singulair] 10 mg PO HS 01/13/17 01/26/17 History Multivitamins, Thera [Multivitamin 1 tab PO DAILY 01/13/17 01/26/17 History (formulary)] [place]-3 Fatty Acids/Fish Oil [Fish 1 cap PO HS 01/13/17 01/26/17 History Oil 1,000 mg Softgel] Omeprazole [PriLOSEC] 40 mg PO DAILY 01/13/17 01/26/17 History Ranitidine HCl [Zantac] 150 mg PO W/SUPPER 01/13/17 01/26/17 History Ubidecarenone [Co Q-10] 100 mg PO DAILY 01/13/17 01/26/17 History guaiFENesin [Mucinex] 600 mg PO BID 01/13/17 01/26/17 History lamoTRIgine [LaMICtal] 400 mg PO DAILY 01/13/17 01/26/17 History metFORMIN HCL ER [Glucophage Xr] 500 mg PO PC-SUPPER 01/13/17 01/26/17 History Allopurinol [Zyloprim] 300 mg PO HS 01/26/17 01/26/17 History Fluticasone/Salmeterol [Advair 1 puff INHALATION RT-BID 01/26/17 01/26/17 History 250-50 Diskus] [place] Carbonate 150 mg PO DAILY 01/26/17 01/26/17 History Spironolactone 50 mg PO BID 01/26/17 01/26/17 History Allergies Allergy/AdvReac Type Severity Reaction Status Date / Time chlordiazepoxide Allergy Unknown Verified 01/26/17 20:26 [From Librax (with clidinium)] clidinium Allergy Unknown Verified 01/26/17 20:26 [From Librax (with clidinium)] codeine Allergy Itching Verified 01/26/17 20:26 Penicillins Allergy Rash/Hives Verified 01/26/17 20:26 pentazocine lactate Allergy Hallucinati Verified 01/26/17 20:26 [From [place]] ons propoxyphene HCl Allergy Rapid Verified 01/26/17 20:26 [From [place]] Heart Rate tomato AdvReac Nausea & Verified 01/26/17 20:26 Vomiting & Diarrhea Physical Examination - Vital Signs Vital Signs: Vital Signs Temp Pulse Resp BP Pulse Ox 01/27/17 16:00 95 16 155/67 96 01/27/17 12:00 85 162/77 99 01/27/17 08:00 96.4 F L 88 136/103 98 01/27/17 04:00 91 16 174/79 97 01/27/17 00:00 98.1 F 99 16 143/73 98 Intake and Output 01/27/17 01/27/17 01/27/17 06:59 14:59 22:59 Intake Total 900 480 240 Balance 900 480 240 Intake: IV 900 Magnesium Sulfate-D5w Pmx 100 1 gm In Dextrose/Water 1 100ml.bag @ 100 mls/hr IVPB ONCE ONE Rx#: [id number] Sodium Chloride 0.9% 1, 800 000 ml @ 100 mls/hr IV . Q10H [facility] Rx#:[id number] Oral 480 240 Other: Voiding Method Toilet # Voids 1 1 1 Weight 89.3 kg - Constitutional General appearance: average body habitus - EENT EENT: PERRL, hearing intact, vision intact - Respiratory Respiratory: lungs clear - Cardiovascular Cardiovascular: regular rate, normal S1, normal S2 Extremities: no peripheral edema bilaterally - Integumentary Integumentary: normal - Neurologic Cranial nerve examination: PERRL, EOMI, VFF, V1/V2/V3 grossly intact, face symmetric, tongue midline Speech examination: intact Sensorimotor examination: intact Reflex and gait examination: intact - Psychiatric Psychiatric: mood/affect appropriate Results - Laboratory Findings CBC and BMP: 01/27/17 05:28 01/27/17 05:28 Abnormal Lab Findings: Abnormal Labs 01/26/17 01/26/17 01/27/17 16:49 16:49 05:28 RBC 3.76 L Hgb 10.2 L Hct 31.4 L Plt Count 496 H POC Glucose (mg/dL) Hemoglobin A1c Magnesium 1.5 L Iron % Saturation Ferritin LDL Cholesterol, Calc 106 H HDL Cholesterol 70 H 01/27/17 01/27/17 01/27/17 05:28 05:28 05:28 RBC 3.52 L Hgb 9.5 L Hct 30.3 L Plt Count POC Glucose (mg/dL) Hemoglobin A1c 6.2 H Magnesium Iron 30 L % Saturation 7.1 L Ferritin 8 L LDL Cholesterol, Calc HDL Cholesterol 01/27/17 01/27/17 01/27/17 05:59 11:49 16:52 RBC Hgb Hct Plt Count POC Glucose (mg/dL) 102 H 104 H 114 H Hemoglobin A1c Magnesium Iron % Saturation Ferritin LDL Cholesterol, Calc HDL Cholesterol Assessment and Plan (1) Transient cerebral ischemia Status: Acute Code(s): G45.9 - TRANSIENT CEREBRAL ISCHEMIC ATTACK, UNSPECIFIED Plan: She had a carotid ultrasound and echocardiogram which was unremarkable. He did have low magnesium which was supplemented She has been admitted to the hospital with possible TIA. She had a CAT scan of the brain which was negative. Recommend MRI of the brain as an outpatient and she can continue aspirin therapy
[2017-01-27] MEDS: LEVOTHYROXINE 100 MCG TAB PO SCH (20:48)
[2017-01-27] MEDS: MONTELUKAST 10 MG TAB PO SCH (20:48)
[2017-01-27] MEDS: ALLOPURINOL 300 MG TAB PO SCH (20:48)
[2017-01-27 20:56] LABS: Glucose,Whole Blood 112 mg/dL (75-99)
[2017-01-27] MEDS: LORazepam 1 MG TAB PO PRN (22:39)
[2017-01-28 02:38] VITALS: RESP 17
[2017-01-28 05:34] LABS: Glucose,Whole Blood 109 mg/dL (75-99)
[2017-01-28] MEDS: INSULIN LISPRO (humaLOG) 300 UNIT/3 ML VIAL SQ SCH (05:45)
[2017-01-28] MEDS: PANTOPRAZOLE 40 MG TABLET PO SCH (06:36)
[2017-01-28 06:57] LABS: Anisocytosis Slight; Basophils # (A) 0.1 k/uL (0-0.2); Basophils % (A) 1 %; CH 27.2; CHCM 31.2; Eosinophils # (A) 0.5 k/uL (0-0.7); Eosinophils % (A) 6 %; HCT 32.6 % (34.0-46.0); HDW 2.72; HGB 9.9 gm/dL (11.4-16.0); Hypochromasia Slight; Luc # (Auto) 0.23; Luc % (Auto) 3; Lymphocytes # (A) 2.1 k/uL (1.0-4.8); Lymphocytes % (A) 26 %; MCH 26.7 pg (25.0-35.0); MCHC 30.5 g/dL (31.0-37.0); MCV 87.5 fL (80.0-100.0); Mean Platelet Volume 6.6; Monocytes # (A) 0.5 k/uL (0-1.0); Monocytes % (A) 7 %; Neutrophils # (A) 4.5 k/uL (1.3-7.7); Neutrophils % (A) 57 %; RBC 3.72 m/uL (3.80-5.40); RDW 16.1 % (11.5-15.5); WBC 7.8 k/uL (3.8-10.6); WBC (Perox) 7.88
[2017-01-28 07:12] LABS: ALT 46 U/L (9-52); AST 28 U/L (14-36); Alkaline Phosphatase 84 U/L (38-126); Anion Gap 11 mmol/L; Blood Urea Nitrogen 9 mg/dL (7-17); Calcium 9.6 mg/dL (8.4-10.2); Carbon Dioxide 24 mmol/L (22-30); Chloride 103 mmol/L (98-107); Glucose 97 mg/dL (74-99); Magnesium 1.5 mg/dL (1.6-2.3); Non-African American GFR(MDRD) >60 (>60 ml/min/1.73 sqM); Potassium 4.5 mmol/L (3.5-5.1); Sodium 138 mmol/L (137-145); Total Bilirubin 0.4 mg/dL (0.2-1.3); Total Protein 7.4 g/dL (6.3-8.2)
[2017-01-28] MEDS: amLODIPine 5 MG TAB PO SCH (08:37)
[2017-01-28] MEDS: ETODOLAC 300 MG CAPSULE PO SCH (08:38)
[2017-01-28] MEDS: HEPARIN SODIUM,PORCINE 5,000 UNIT/ML 1 ML VIAL SQ SCH (08:38)
[2017-01-28] MEDS: lamoTRIgine 100 MG TAB PO SCH (08:38)
[2017-01-28] MEDS: guaiFENesin 600 MG TABLET.ER PO SCH (08:38)
[2017-01-28] MEDS: ASPIRIN 325 MG TAB PO SCH (08:39)
[2017-01-28] MEDS: LITHIUM CARBONATE 150 MG CAP PO SCH (08:39)
[2017-01-28] MEDS: SPIRONOLACTONE 25 MG TAB PO SCH (08:39)
[2017-01-28] MEDS: MULTIVITAMINS, THERA 1 EACH TAB PO SCH (08:39)
[2017-01-28] MEDS: POLYETHYLENE GLYCOL 3350 17 GM POWD.PACK PO SCH (08:39)
--- NOTE | 2017-01-28 08:46 | P.DS ---
Providers Date of admission: 01/26/17 19:03 Expected date of discharge: 01/28/17 Attending physician: Consuelo Cabrera Consults: 01/26/17 19:03 Consult Physician Routine Consulting Provider: Kenia Castano Consult Reason/Comments: lorraine Do you want consulting provider notified?: Yes Primary care physician: Nicole Coughlin Hospital Course: Diagnoses on discharge: 1. TIA with difficulty with her speech and thought process. Symptoms now resolved. Neurology consulted. Computed tomography scan of the brain negative. Carotid Doppler and echocardiogram without significant abnormality. Continue full aspirin. Continue telemetry monitoring. Per neurology recommendation patient will need MRI of the brain which will be done as outpatient 2. History of bipolar with recent change in medication about 2 weeks ago patient was started on lithium. [place] level less than 0.2. Continue Lamictal 3. Hypomagnesemia: Patient receiving magnesium supplement. Recheck magnesium level in a.m. 4. Essential hypertension: Patient reports not being on blood pressure medications at home. Patient is diabetic and should be on an JOSE inhibitor or an ARB however these medication are not compatible with lithium. She was started on Norvasc 5 mg once daily and blood pressure was well controlled. 5. Anemia with no evidence of acute blood loss anemia. Hemoglobin has dropped from 10.2-9.5. Likely related to fluids. Iron level is low patient will be started on iron supplements. Further evaluation of the cause of her anemia should be done as outpatient. Will defer to her primary care physician. 6. Diabetes mellitus type 2 on metformin at home. We'll hold metformin during patient's hospitalization and continue sliding scale coverage. Monitor for any episodes of hypoglycemia 7. Hypothyroidism: Check TSH level. Continue with level thyroxine Hospital course: This is a 71-year-old female, patient of Dr. Coughlin. She has a known past medical history of diabetes mellitus, hyperlipidemia, hypothyroidism, hypertension and bipolar. Patient presents to the emergency room with complaints of difficulty with finding the correct words. And also her train of thought. Patient reports that she was having difficulty focusing on tasks such is things is going to the bathroom. She is reports that she had to tell herself she needs to wipe and then she questioned if she did wipe after using the bathroom. Her symptoms resolved a couple hours after being admitted to the hospital. She is currently on the sixth floor and being evaluated for possible TIA. Neurology has been consulted. Computed tomography scan of the brain was negative. A carotid Doppler and echo have been ordered. EKG had initially shown sinus tachycardia with a heart rate of 108. Patient reports being started on lithium about 2 weeks ago her psychiatrist had discontinued the Trileptal because she was having issues with low sodium. And she is now currently on lithium 150 mg daily the lithium level was less than 0.2. Patient also was found have evidence of hypo-magnesium and is receiving supplement. Patient denies any vision changes any facial droop. She denies any weakness on one side of her body. She does admit to having some tremor- like changes in her arms that also had improved. Patient reports no history of seizure activity. Patient denies any fever chills or sweats. Denies any chest pain or shortness of breath. Denies any nausea or vomiting. Denies any bowel movement changes or urinary symptoms. She did state that she felt her symptoms were similar to when she has a low blood sugar however patient reports that she had eaten and didn't check her blood sugar. On admission blood glucose was 99. And this morning blood sugar was 102. Patient was admitted to telemetry floor she underwent echocardiogram and carotid Dopplers which failed to reveal any significant abnormality her blood pressure was elevated during this admission and she was started on Norvasc 5 mg once daily she had evidence of anemia hemoglobin down to 9.9 iron study revealed evidence of iron deficiency she was started on iron sulfate 325 mg 1 daily. Will defer evaluation of the causes of her iron deficiency anemia to the outpatient setting. Patient underwent computed tomography scan of the brain which was unremarkable during this admission. Her symptoms totally resolved and she was back to her baseline. She was evaluated by neurology and recommendation was to proceed with MRI of the brain as outpatient. She was discharged home on 01/28/2017, she will continue on her same home medication in addition to Norvasc 5 mg once daily, iron sulfate 325 mg once daily, and aspirin dose has been increased from 81 mg to 325 mg once daily. Follow-up with her primary care physician Dr. Coughlin within 1 week follow-up with neurology, Dr. Roseanna Mckay within 1 week Patient Condition at Discharge: Good Plan - Discharge Summary New Discharge Prescriptions: New amLODIPine [Norvasc] 5 mg PO DAILY tab Aspirin 325 mg PO DAILY tab Continue lamoTRIgine [LaMICtal] 400 mg PO DAILY guaiFENesin [Mucinex] 600 mg PO BID Ranitidine HCl [Zantac] 150 mg PO W/SUPPER metFORMIN HCL ER [Glucophage Xr] 500 mg PO PC-SUPPER Omeprazole [PriLOSEC] 40 mg PO DAILY Montelukast [Singulair] 10 mg PO HS Ubidecarenone [Co Q-10] 100 mg PO DAILY [place]-3 Fatty Acids/Fish Oil [Fish Oil 1,000 mg Softgel] 1 cap PO HS Multivitamins, Thera [Multivitamin (formulary)] 1 tab PO DAILY Alpha Lipoic Acid 50 mg PO DAILY Levothyroxine Sodium [Synthroid] 100 mcg PO HS LORazepam [Ativan] 0.5 - 1 mg PO TID PRN PRN Reason: Anxiety Diclofenac Sodium [Voltaren] 75 mg PO BID Polyethylene Glycol 3350 [Miralax] 17 gm PO DAILY #255 gm [place] Carbonate 150 mg PO DAILY Fluticasone/Salmeterol [Advair 250-50 Diskus] 1 puff INHALATION RT-BID Spironolactone 50 mg PO BID Allopurinol [Zyloprim] 300 mg PO HS Discontinued Aspirin 81 mg PO HS Discharge Medication List Alpha Lipoic Acid 50 mg PO DAILY 01/13/17 [History] Diclofenac Sodium [Voltaren] 75 mg PO BID 01/13/17 [History] LORazepam [Ativan] 0.5 - 1 mg PO TID PRN 01/13/17 [History] Levothyroxine Sodium [Synthroid] 100 mcg PO HS 01/13/17 [History] Montelukast [Singulair] 10 mg PO HS 01/13/17 [History] Multivitamins, Thera [Multivitamin (formulary)] 1 tab PO DAILY 01/13/17 [History ] [place]-3 Fatty Acids/Fish Oil [Fish Oil 1,000 mg Softgel] 1 cap PO HS 01/13/17 [ History] Omeprazole [PriLOSEC] 40 mg PO DAILY 01/13/17 [History] Ranitidine HCl [Zantac] 150 mg PO W/SUPPER 01/13/17 [History] Ubidecarenone [Co Q-10] 100 mg PO DAILY 01/13/17 [History] guaiFENesin [Mucinex] 600 mg PO BID 01/13/17 [History] lamoTRIgine [LaMICtal] 400 mg PO DAILY 01/13/17 [History] metFORMIN HCL ER [Glucophage Xr] 500 mg PO PC-SUPPER 01/13/17 [History] Polyethylene Glycol 3350 [Miralax] 17 gm PO DAILY #255 gm 01/15/17 [Rx] Allopurinol [Zyloprim] 300 mg PO HS 01/26/17 [History] Fluticasone/Salmeterol [Advair 250-50 Diskus] 1 puff INHALATION RT-BID 01/26/17 [History] [place] Carbonate 150 mg PO DAILY 01/26/17 [History] Spironolactone 50 mg PO BID 01/26/17 [History] Aspirin 325 mg PO DAILY tab 01/28/17 [Rx] amLODIPine [Norvasc] 5 mg PO DAILY tab 01/28/17 [Rx] Follow up Appointment(s)/Referral(s): Nicole Coughlin MD [Primary Care Provider] - 1-2 days
[2017-01-28 08:48] VITALS: BP 135/63; PULSE 94; TEMP 96.5
[2017-01-28] MEDS ORDERED: NON-FORMULARY DRUG (Ubidecarenone [Co Q-10] 100 MG) PO SCH (09:00)
== END 2017-01-28 11:38 | disposition home or self-care (01) ==
LOC: EC 16:03 → 6SEL 19:03
PROVIDERS: ADMIT Internal Medicine; ATTEND Internal Medicine
DX: G45.9 Transient cerebral ischemic attack, unspecified (principal); R47.9 Unspecified speech disturbances; F31.9 Bipolar disorder, unspecified; E83.42 Hypomagnesemia; I10 Essential (primary) hypertension; D50.9 Iron deficiency anemia, unspecified; E11.9 Type 2 diabetes mellitus without complications; E03.9 Hypothyroidism, unspecified; Z79.82 Long term (current) use of aspirin; Z79.899 Other long term (current) drug therapy; Z79.84 Long term (current) use of oral hypoglycemic drugs; Z79.51 Long term (current) use of inhaled steroids; J45.909 Unspecified asthma, uncomplicated; E78.5 Hyperlipidemia, unspecified; R01.1 Cardiac murmur, unspecified; E87.6 Hypokalemia; Z82.49 Family history of ischemic heart disease and other diseases of the circulatory system; F41.9 Anxiety disorder, unspecified; Z88.5 Allergy status to narcotic agent; Z88.0 Allergy status to penicillin; Z88.8 Allergy status to other drugs, medicaments and biological substances; Z91.018 Allergy to other foods
CPT/HCPCS: 99285; 96361; 96365; 96366; 96372 ×2; 36415; 94640; 94760; 93005; 93306; 97162; 92523; 80061; 80053 ×3; 84443; 82728; 83036; 82550; 82553; 83540; 83550; 80178; 83735 ×3; 84100; 84484; 85025 ×3; 85610; 85730; 81003; 87086; 71020; 93880; 70450; G0378 ×3; J1644 ×2; J3475 ×2

== ENCOUNTER → 2017-07-28 | Outpatient (CLI) | payer MEDICARE, OTHER ==
--- NOTE | 2017-07-29 13:53 | MM ---
Reason for exam: screening (asymptomatic). Last mammogram was performed 1 year ago. History: Patient is postmenopausal and history of other cancer. Physical Findings: A clinical breast exam by your physician is recommended on an annual basis and results should be correlated with mammographic findings. MG 3D Screening Mammo W/Cad Bilateral CC and MLO view(s) were taken. Prior study comparison: July 19, 2016, bilateral MG 3d screening mammo w/cad. There are scattered fibroglandular densities. Finding: There are typically benign vascular, round, linear calcifications in both breasts. There is no discrete abnormality. ASSESSMENT: Benign, BI-RAD 2 RECOMMENDATION: Routine screening mammogram of both breasts in 1 year.
== END | disposition home or self-care (01) ==
LOC: RADMAMWWP 11:01
PROVIDERS: ATTEND Family Medicine
DX: Z12.31 Encounter for screening mammogram for malignant neoplasm of breast (principal)
CPT/HCPCS: 77063; 77067

== ENCOUNTER 2017-09-08 11:40 | Emergency (ER) | payer MEDICARE, OTHER ==
[2017-09-08 11:44] VITALS: TEMP 98.4
[2017-09-08 12:30] VITALS: RESP 16
[2017-09-08 13:10] LABS: Basophils # (A) 0.1 k/uL (0-0.2); Basophils % (A) 1 %; Eosinophils # (A) 0.4 k/uL (0-0.7); Eosinophils % (A) 4 %; HCT 37.5 % (34.0-46.0); HGB 12.8 gm/dL (11.4-16.0); Lymphocytes # (A) 2.1 k/uL (1.0-4.8); Lymphocytes % (A) 23 %; MCH 30.6 pg (25.0-35.0); MCHC 34.2 g/dL (31.0-37.0); MCV 89.6 fL (80.0-100.0); Mean Platelet Volume 7.7; Monocytes # (A) 0.6 k/uL (0-1.0); Monocytes % (A) 6 %; Neutrophils % (A) 65 %; Platelet Count 275 k/uL (150-450); RBC 4.19 m/uL (3.80-5.40); RDW 14.3 % (11.5-15.5); WBC 9.2 k/uL (3.8-10.6)
[2017-09-08 13:25] LABS: ALT 37 U/L (9-52); AST 42 U/L (14-36); Albumin 4.7 g/dL (3.5-5.0); Alkaline Phosphatase 88 U/L (38-126); Amylase 66 U/L (30-110); Anion Gap 19 mmol/L; Blood Urea Nitrogen 14 mg/dL (7-17); Calcium 10.1 mg/dL (8.4-10.2); Carbon Dioxide 21 mmol/L (22-30); Chloride 102 mmol/L (98-107); Glucose 120 mg/dL (74-99); Lipase 128 U/L (23-300); Magnesium 1.9 mg/dL (1.6-2.3); Sodium 142 mmol/L (137-145); Total Bilirubin 0.6 mg/dL (0.2-1.3)
[2017-09-08 13:30] LABS: Potassium 5.2 mmol/L (3.5-5.1)
--- NOTE | 2017-09-08 13:35 | XR ---
EXAMINATION TYPE: XR ribs LT w pa chest xray DATE OF EXAM: 09/08/2017 COMPARISON: 01/26/2017 HISTORY: Left-sided rib pain TECHNIQUE: One view the chest and 3 views of the ribs are submitted FINDINGS: Lungs are clear. No pneumothorax or consolidation.. No interstitial edema or pleural effusi on. No focal pneumonia. Rib cage intact. IMPRESSION: No acute displaced fracture. No pneumothorax.
[2017-09-08 13:47] LABS: D-Dimer 0.26 mg/L FEU (<0.60); INR 1.1 (<1.2); Prothrombin Time 10.7 sec (9.0-12.0)
[2017-09-08 13:54] LABS: Troponin I 0.021 ng/mL (0.000-0.034)
[2017-09-08 13:55] LABS: Creatine Kinase MB 0.8 ng/mL (0.0-2.4)
[2017-09-08 13:56] LABS: Appearance,Urine Cloudy (Clear); Bacteria,Urine Rare /hpf; Bilirubin,Urine Negative (Negative); Blood,Urine Negative (Negative); Color,Urine Yellow; Glucose,Urine (UA) Negative (Negative); Hyaline Casts,Urine 4 /lpf (0-2); Ketones,Urine Trace (Negative); Leukocyte Esterase,Urine Negative (Negative); Mucus,Urine Few /hpf; Nitrite,Urine Negative (Negative); PH, Urine 6.5 (5.0-8.0); Protein,Urine 1+ (Negative); Specific Gravity,Urine 1.018 (1.001-1.035); Squamous Epithelial Cell,Urine 4 /hpf (0-4); WBC,Urine 2 /hpf (0-5)
[2017-09-08 15:57] VITALS: BP 141/83; PULSE 83
--- NOTE | 2017-09-08 16:36 | ED ---
General Adult HPI - General Chief complaint: Chest Pain Stated complaint: CHEST PAIN Time Seen by Provider: 09/08/17 12:29 Source: patient, family, RN notes reviewed Mode of arrival: ambulatory Limitations: no limitations - History of Present Illness Initial comments: Chief complaint and history of present illness a 71-year-old female here with a complaint of discomfort to her left lateral flank. This been ongoing for one week. Patient reports that she has seen her family physician is been placed on anti-shingles medication. Patient denies any trauma that she can remember. She does have a bruise to her left lateral chest wall. Point specific pain. No rash. Patient denies any other symptoms no sweats no nausea no vomiting - Related Data Home Medications Medication Instructions Recorded Confirmed Alpha Lipoic Acid 200 mg PO W/LUNCH 01/13/17 09/08/17 Diclofenac Sodium [Voltaren] 75 mg PO BID 01/13/17 09/08/17 LORazepam [Ativan] 0.5 - 1 mg PO TID PRN 01/13/17 09/08/17 Levothyroxine Sodium [Synthroid] 100 mcg PO HS 01/13/17 09/08/17 Montelukast [Singulair] 10 mg PO HS 01/13/17 09/08/17 Multivitamins, Thera [Multivitamin 1 tab PO W/LUNCH 01/13/17 09/08/17 (formulary)] Omeprazole [PriLOSEC] 40 mg PO DAILY 01/13/17 09/08/17 Ranitidine HCl [Zantac] 150 mg PO W/SUPPER 01/13/17 09/08/17 Ubidecarenone [Co Q-10] 100 mg PO W/LUNCH 01/13/17 09/08/17 guaiFENesin [Mucinex] 600 mg PO BID PRN 01/13/17 09/08/17 metFORMIN HCL ER [Glucophage Xr] 500 mg PO PC-SUPPER 01/13/17 09/08/17 Allopurinol [Zyloprim] 300 mg PO W/SUPPER 01/26/17 09/08/17 [place] Carbonate 150 mg PO DAILY 01/26/17 09/08/17 Spironolactone 50 mg PO BID 01/26/17 09/08/17 Albuterol Inhaler [Ventolin Hfa 1 - 2 puff INHALATION RT-Q6H PRN 09/08/17 Inhaler] Aspirin 325 mg PO W/LUNCH 09/08/17 09/08/17 Clemastine Fumarate 2.68 mg PO BID 09/08/17 09/08/17 Cyanocobalamin (Vitamin B-12) 1,000 mcg PO W/LUNCH 09/08/17 09/08/17 [Vitamin B-12] Docusate [Colace] 100 mg PO DAILY PRN 09/08/17 09/08/17 Ferrous Sulfate [Iron] 325 mg PO W/LUNCH 09/08/17 09/08/17 Gabapentin [Neurontin] 100 - 200 mg PO HS 09/08/17 09/08/17 Magnesium Oxide [Mag-Ox] 400 mg PO W/LUNCH 09/08/17 09/08/17 amLODIPine [Norvasc] 5 mg PO W/SUPPER 09/08/17 09/08/17 lamoTRIgine [LaMICtal] 300 mg PO DAILY 09/08/17 09/08/17 valACYclovir HCL [Valtrex] 1,000 mg PO TID 09/08/17 09/08/17 Previous Rx's Medication Instructions Recorded Polyethylene Glycol 3350 [Miralax] 17 gm PO DAILY #255 gm 01/15/17 Allergies Allergy/AdvReac Type Severity Reaction Status Date / Time chlordiazepoxide Allergy Unknown Verified 09/08/17 13:01 [From Librax (with clidinium)] clidinium Allergy Unknown Verified 09/08/17 13:01 [From Librax (with clidinium)] codeine Allergy Itching Verified 09/08/17 13:01 Penicillins Allergy Rash/Hives Verified 09/08/17 13:01 pentazocine lactate Allergy Hallucinati Verified 09/08/17 13:01 [From Talwin] ons propoxyphene HCl Allergy Rapid Verified 09/08/17 13:01 [From Darvon] Heart Rate tomato AdvReac Nausea & Verified 09/08/17 13:01 Vomiting & Diarrhea Review of Systems ROS Statement: Those systems with pertinent positive or pertinent negative responses have been documented in the HPI. Review of systems no headache or visual acuity changes, no shortness of breath. Twisting turning palpating her left lower mid lateral chest wall does increased discomfort localized there is a small area of bruising. Patient can' t remember what happened if anything no rash noted typical of shingles. Patient 's never had shingles before. No GI/ problems no neuro deficits. All systems are reviewed. Past medical problems significant for asthma, diabetes mellitus, hyperlipidemia hypothyroidism bipolar disorder. The patient's surgeries include appendectomy, tonsil adenoids, bilateral tubal ligation, meniscus removed from her left knee and total hysterectomy. The patient's family history significant father had thyroid and rectal cancer. She does get routine colonoscopies. Patient has ALLERGIES to Darvon, codeine and Librax and cillins. The patient nonsmoker nondrinker at this time. ROS Other: All systems not noted in ROS Statement are negative. Past Medical History Past Medical History: Asthma, Diabetes Mellitus, Hyperlipidemia, Thyroid Disorder Additional Past Medical History / Comment(s): bipolar hypokalemia murmur History of Any Multi-Drug Resistant Organisms: None Reported Past Surgical History: Appendectomy, Orthopedic Surgery, Tonsillectomy, Tubal Ligation Additional Past Surgical History / Comment(s): left knee Past Anesthesia/Blood Transfusion Reactions: No Reported Reaction Past Psychological History: Anxiety, Bipolar Smoking Status: Never smoker Past Alcohol Use History: None Reported Past Drug Use History: None Reported - Past Family History Father Family Medical History: Cancer, Hypertension Additional Family Medical History / Comment(s): pericarditis, thyroid and rectal cancer Mother Family Medical History: Pulmonary Embolus Additional Family Medical History / Comment(s): bi polar General Exam - General Exam Comments Initial Comments: General: The patient is awake and alert, in no distress, and does not appear acutely ill. here because of a weeklong discomfort to her lateral left chest. Small bruise noted no known injury. Vital signs shows temperature 98.4 pulse 83 respiratory rate 16 pulse ox on percent on 2 L nasal cannula. The patient does not feel dizzy. Blood pressure 141/83 Eye: Pupils are equal, round and reactive to light, extra-ocular movements are intact ; there is normal conjunctiva bilaterally. No signs of icterus. Ears, nose, mouth and throat: There are moist mucous membranes and no oral lesions. Neck: The neck is supple, there is no tenderness or JVD. Cardiovascular: There is a regular rate and rhythm. No murmur, rub or gallop is appreciated. Respiratory: Lungs are clear to auscultation, respirations are non-labored, breath sounds are equal. No wheezes, stridor, rales, or rhonchi.there is small bruise noted approximately 2 cm x 5 cm on her lateral left chest wall. Palpation of the area causes discomfort. Patient cannot remember injuring it in any way. Palpation increases discomfort lasting and turning increases discomfort. Lungs are clear to auscultation. Gastrointestinal: Soft, non-distended, non-tender abdomen without masses or organomegaly noted. There is no rebound or guarding present. No CVA tenderness. Bowel sounds are unremarkable. Back: There is no tenderness to palpation in the midline. There is no obvious deformity. No rashes noted. Musculoskeletal: Normal ROM, no tenderness, There is no pedal edema. There is no calf tenderness or swelling. Sensation intact. Pulses equal bilaterally 2+. Neurological: no neuro deficits Skin: no skin rashes Psychiatric: Cooperative,history of depression but not depressed. Limitations: no limitations Course Vital Signs 09/08/17 09/08/17 09/08/17 11:41 12:30 13:46 Temperature 98.4 F Pulse Rate 107 H 90 93 Respiratory 18 16 16 Rate Blood Pressure 181/77 159/72 165/93 O2 Sat by Pulse 97 98 100 Oximetry 09/08/17 15:57 Temperature Pulse Rate 83 Respiratory 16 Rate Blood Pressure 141/83 O2 Sat by Pulse 100 Oximetry EKG Findings - EKG Comments: EKG Findings:: EKG was done reviewed 1155 showing normal sinus rhythm age undetermined inferior infarct. Nonspecific ST-T wave changes. Rate 99 NV interval is 152 QRS 74 QT [address] Parada Medical Decision Making - Medical Decision Making Medical decision making; a 71-year-old female here with her . Patient reports for the past week or more she's had discomfort to her area below the left breast radiating around to the left lateral chest wall. There is a small bruise there. The patient can't remember what may have caused that. She has seen her family doctor which suggests the possibility of shingles without rash. She reports that she is on anti-shingle medication. Patient denies any sweats no nausea no vomiting. Labs show white count of 9 hemoglobin 12 medical 37. INR 1.1. Potassium 5.2. The patient is being hydrated in emergency room. Sodium 142. The patient's BUN is 14 creatinine 0.6 GFR greater than 90. Glucose 120. AST 42. CK of 103 troponin 0.0-1. Amylase lipase normal limits. Urine clean no signs of infection. Chest x-ray was done and left rib series was added. This is reviewed by radiologist his findings are; lungs are clear. No pneumothorax or consolidation. No interstitial edema pleural effusion. No focal pneumonia. Rib cage intact. Impression in no acute displaced rib fracture. No pneumothorax. As read by Dr. Henriqeuz I discussed with the patient her recent lab tests including those done today. We discussed costochondritis and superficial bruising causing a localized pain. She will watch for rash. Continue her anti-shingles medication as per her physician and return emergency room if she has any difficulties or problems. - Lab Data Result diagrams: 09/08/17 12:29 09/08/17 12:29 Lab Results 09/08/17 09/08/17 09/08/17 Range/Units 12:29 12:29 12:29 WBC 9.2 (3.8-10.6) k/uL RBC 4.19 (3.80-5.40) m/uL Hgb 12.8 (11.4-16.0) gm/dL Hct 37.5 (34.0-46.0) % MCV 89.6 (80.0-100.0) fL MCH 30.6 (25.0-35.0) pg MCHC 34.2 (31.0-37.0) g/dL RDW 14.3 (11.5-15.5) % Plt Count 275 (150-450) k/uL Neutrophils % 65 % Lymphocytes % 23 % Monocytes % 6 % Eosinophils % 4 % Basophils % 1 % Neutrophils # 6.0 (1.3-7.7) k/uL Lymphocytes # 2.1 (1.0-4.8) k/uL Monocytes # 0.6 (0-1.0) k/uL Eosinophils # 0.4 (0-0.7) k/uL Basophils # 0.1 (0-0.2) k/uL PT (9.0-12.0) sec INR (<1.2) D-Dimer (<0.60) mg/L FEU Sodium 142 (137-145) mmol/L Potassium 5.2 H (3.5-5.1) mmol/L Chloride 102 (98-107) mmol/L Carbon Dioxide 21 L (22-30) mmol/L Anion Gap 19 mmol/L BUN 14 (7-17) mg/dL Creatinine 0.60 (0.52-1.04) mg/dL Est GFR (CKD-EPI)AfAm >90 (>60 ml/min/1.73 sqM) Est GFR (CKD-EPI)NonAf >90 (>60 ml/min/1.73 sqM) Glucose 120 H (74-99) mg/dL Calcium 10.1 (8.4-10.2) mg/dL Magnesium 1.9 (1.6-2.3) mg/dL Total Bilirubin 0.6 (0.2-1.3) mg/dL AST 42 H (14-36) U/L ALT 37 (9-52) U/L Alkaline Phosphatase 88 (38-126) U/L Total Creatine Kinase 103 (30-135) U/L CK-MB (CK-2) 0.8 (0.0-2.4) ng/mL CK-MB (CK-2) Rel Index 0.8 Troponin I 0.021 (0.000-0.034) ng/mL Total Protein 8.0 (6.3-8.2) g/dL Albumin 4.7 (3.5-5.0) g/dL Amylase 66 (30-110) U/L Lipase 128 (23-300) U/L Urine Color Urine Appearance (Clear) Urine pH (5.0-8.0) Ur Specific [place] (1.001-1.035) Urine Protein (Negative) Urine Glucose (UA) (Negative) Urine Ketones (Negative) Urine Blood (Negative) Urine Nitrite (Negative) Urine Bilirubin (Negative) Urine Urobilinogen (<2.0) mg/dL Ur Leukocyte Esterase (Negative) Urine WBC (0-5) /hpf Ur Squamous Epith Cells (0-4) /hpf Urine Bacteria (None) /hpf Hyaline Casts (0-2) /lpf Urine Mucus (None) /hpf 09/08/17 09/08/17 Range/Units 12:29 13:20 WBC (3.8-10.6) k/uL RBC (3.80-5.40) m/uL Hgb (11.4-16.0) gm/dL Hct (34.0-46.0) % MCV (80.0-100.0) fL MCH (25.0-35.0) pg MCHC (31.0-37.0) g/dL RDW (11.5-15.5) % Plt Count (150-450) k/uL Neutrophils % % Lymphocytes % % Monocytes % % Eosinophils % % Basophils % % Neutrophils # (1.3-7.7) k/uL Lymphocytes # (1.0-4.8) k/uL Monocytes # (0-1.0) k/uL Eosinophils # (0-0.7) k/uL Basophils # (0-0.2) k/uL PT 10.7 (9.0-12.0) sec INR 1.1 (<1.2) D-Dimer 0.26 (<0.60) mg/L FEU Sodium (137-145) mmol/L Potassium (3.5-5.1) mmol/L Chloride (98-107) mmol/L Carbon Dioxide (22-30) mmol/L Anion Gap mmol/L BUN (7-17) mg/dL Creatinine (0.52-1.04) mg/dL Est GFR (CKD-EPI)AfAm (>60 ml/min/1.73 sqM) Est GFR (CKD-EPI)NonAf (>60 ml/min/1.73 sqM) Glucose (74-99) mg/dL Calcium (8.4-10.2) mg/dL Magnesium (1.6-2.3) mg/dL Total Bilirubin (0.2-1.3) mg/dL AST (14-36) U/L ALT (9-52) U/L Alkaline Phosphatase (38-126) U/L Total Creatine Kinase (30-135) U/L CK-MB (CK-2) (0.0-2.4) ng/mL CK-MB (CK-2) Rel Index Troponin I (0.000-0.034) ng/mL Total Protein (6.3-8.2) g/dL Albumin (3.5-5.0) g/dL Amylase (30-110) U/L Lipase (23-300) U/L Urine Color Yellow Urine Appearance Cloudy H (Clear) Urine pH 6.5 (5.0-8.0) Ur Specific [place] 1.018 (1.001-1.035) Urine Protein 1+ H (Negative) Urine Glucose (UA) Negative (Negative) Urine Ketones Trace H (Negative) Urine Blood Negative (Negative) Urine Nitrite Negative (Negative) Urine Bilirubin Negative (Negative) Urine Urobilinogen 2.0 (<2.0) mg/dL Ur Leukocyte Esterase Negative (Negative) Urine WBC 2 (0-5) /hpf Ur Squamous Epith Cells 4 (0-4) /hpf Urine Bacteria Rare H (None) /hpf Hyaline Casts 4 H (0-2) /lpf Urine Mucus Few H (None) /hpf Disposition Clinical Impression: Costochondritis, acute Disposition: HOME SELF-CARE Condition: Fair Instructions: Costochondritis (ED) Additional Instructions: use local heat alternating with ice for discomfort take your aspirin the morning 6 hours later take ibuprofen with food. Follow-up with family physician. Return emergency room as needed watch for shingles type rash. Referrals: Nicole Coughlin MD [Primary Care Provider] - 1-2 days Time of Disposition: 16:48
== END 2017-09-08 16:58 | disposition home or self-care (01) ==
LOC: EC 11:40
DX: M94.0 Chondrocostal junction syndrome [Tietze] (principal); M79.81 Nontraumatic hematoma of soft tissue; E11.9 Type 2 diabetes mellitus without complications; E78.5 Hyperlipidemia, unspecified; E07.9 Disorder of thyroid, unspecified; F31.9 Bipolar disorder, unspecified; J45.909 Unspecified asthma, uncomplicated; F41.9 Anxiety disorder, unspecified; Z88.0 Allergy status to penicillin; Z88.1 Allergy status to other antibiotic agents; Z88.5 Allergy status to narcotic agent; Z88.8 Allergy status to other drugs, medicaments and biological substances; Z91.018 Allergy to other foods; Z79.82 Long term (current) use of aspirin; Z79.84 Long term (current) use of oral hypoglycemic drugs; Z79.899 Other long term (current) drug therapy
CPT/HCPCS: 36415; 80053; 81001; 82150; 82550; 82553; 83690; 83735; 84484; 85025; 85379; 85610; 93005; 99285

== ENCOUNTER → 2017-09-24 | Outpatient (CLI) | payer MEDICARE, OTHER ==
[2017-09-24 09:13] LABS: Blood Urea Nitrogen 17 mg/dL (7-17)
--- NOTE | 2017-09-24 12:14 | CT ---
EXAMINATION TYPE: CT abdomen w con DATE OF EXAM: 09/24/2017 HISTORY: LUQ pain on and off for [address] DLP: 1516.6mGycm Automated Exposure Control for Dose Reduction was Utilized. CONTRAST: CT scan of the abdomen is performed with IV Contrast, patient injected with 100 mL of Isovue 300. COMPARISON: CT abdomen and pelvis January 13, 2017 FINDINGS: LUNG BASES: Linear density anterior aspect SVC is presumed pulsation artifact from aortic root. Calci fications at level of mitral valve are seen. LIVER/GB: Visualized liver remains heterogeneously hypodense suggesting fatty infiltration. This can be confirmed with noncontrast CT or ultrasound if desired. PANCREAS: No significant abnormality is seen. 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 ADRENALS: No significant abnormality is seen. KIDNEYS: There is phlebolith anterior to left iliopsoas muscle axial image 54 anterior and left later al to course of left ureter. BOWEL: Oral contrast reaches level of cecum. There is no suspicious small or large bowel dilatation. LYMPH NODES: No greater than 1cm abdominal lymph nodes are appreciated. OSSEOUS STRUCTURES: There is transitional type L5 vertebra. There is grade 1 anterolisthesis L4 on L5 . There is moderate to advanced disc space narrowing L4-L5 level. There is prominent facet arthropath y lower lumbar levels. There is prominent multilevel anterior and lateral spurring in the visualized thoracic spine. OTHER: There is mild calcified plaque of aorta extending into branch vessels. IMPRESSION: No significant acute finding is seen to account for patient's clinical symptoms.
== END | disposition home or self-care (01) ==
LOC: RADCTMAIN 08:32
PROVIDERS: ATTEND Family Medicine
DX: R10.9 Unspecified abdominal pain (principal); Z88.5 Allergy status to narcotic agent; Z88.0 Allergy status to penicillin; Z88.8 Allergy status to other drugs, medicaments and biological substances
CPT/HCPCS: 82565; 84520; 74160; Q9967